=== PATIENT | male | born 1950 | race Caucasian/White ===

== ENCOUNTER 2017-01-05 06:13 | Inpatient (IN) | payer OTHER, MEDICARE ==
[2017-01-05] VITALS (9 sets, daily range): BP systolic 83–169; BP diastolic 55–81; PULSE 73–90; RESP 16–20; TEMP 97.8–99; O2SAT 96–98
[~2017-01-05] VITALS: Ht 180.3 cm; Wt 80.7 kg
[~2017-01-05 06:13] MED LIST: IBUP400T20 PO; LISI-515 PO; NORC5TAB PO
[2017-01-05] MEDS ORDERED: ALEV220T14 PO (06:28)
--- NOTE | 2017-01-05 06:47 | PD ---
HPI Chief Complaint: Musculoskeletal Complaint Time Seen by Provider: 06:37 Travel History International Travel<30 days: No Contact w/Intl Traveler<30days: No Traveled to known affect area: No History of Present Illness HPI 66-year-old male presents to the emergency department by private transportation for evaluation of right knee pain. 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 Patient has history of osteoarthritis of the right knee with chronic knee swelling and pain. Patient states that he has been taking over-the -counter Aleve and putting ice on his knee but over the past 2 days he has not felt well the knee pain has increased and he said episodes of nausea. No fever no chills no chest pain no shortness of breath no sweats no abdominal pain no flank pain dysuria frequency urgency no diarrhea or constipation. Patient's had no new joint pain or swelling. Patient reports however that the swelling and pain of the right knee has increased. Patient has not noticed any redness or increased warmth to the knee. Patient states that pain is 9/10 in intensity. Patient reports he has been seen here before for his chronic knee pain but has not followed up with an orthopedist. Patient denies any fall. Patient states however he has been doing repetitive climbing and kneeling and pushing a lawnmower which is part of his [employer] business. Patient has history of hypertension. Patient has had previous acute renal failure secondary to dehydration. Patient has history of hypertension for which she is prescribed Lisinopril. PFSH Past Medical History Narrative Medical Right knee arthritis hypertension appendectomy left orchiectomy; no tobacco use no alcohol use; nursing notes reviewed Arthritis: Yes (RT KNEE) Cancer: No Cardiovascular Problems: Yes (htn on meds) Diminished Hearing: No Endocrine: No Gastrointestinal Disorders: No Genitourinary: No Hypertension: Yes Implanted Vascular Access Dvce: No Musculoskeletal: Yes ("right knee problems,knee pops out,can't afford to f/u with ortho") Neurologic: No Psychiatric: No Reproductive: No Respiratory: No Immunizations Current: No Sleep Apnea: No PNEUMOCCOCAL Vaccine (Year): 2 ?: Not Past Surgical History Appendectomy: Yes Ear Surgery: No Genitourinary Surgery: Yes (LEFT TESTICLE REMOVED 20 YEARS AGO) Neurologic Surgery: No Oral Surgery: Yes ("bilateral nasal surgery for polyps") Other Surgery: Yes ("left testicle removed") Social History Alcohol Use: No (DENIES) Tobacco Use: No Substance Use: Yes Allergies-Medications (Allergen,Severity, Reaction): Coded Allergies: Codeine (Verified Adverse Reaction, Severe, "itch", 07/05/16) Ultram (Verified Adverse Reaction, Severe, Nausea/Vomiting, 07/05/16) Reported Meds & Prescriptions Reported Meds & Active Scripts Active Reported Aleve Arthritis (Naproxen Sodium) 220 Mg Tab 220 Mg PO BID Lisinopril 20 Mg Tab 20 Mg PO DAILY Review of Systems Except as stated in HPI: all other systems reviewed are Neg Physical Exam Narrative GENERAL: Well-developed well-nourished male in obvious discomfort no respiratory distress SKIN: Warm and dry. HEAD: Normocephalic. EYES: No scleral icterus. No injection or drainage. NECK: Supple, trachea midline. No JVD or lymphadenopathy. CARDIOVASCULAR: Regular rate and rhythm without murmurs, gallops, or rubs. RESPIRATORY: Breath sounds equal bilaterally. No accessory muscle use. GASTROINTESTINAL: Abdomen soft, non-tender, nondistended. MUSCULOSKELETAL: No cyanosis, or edema. Attention right knee positive soft tissue swelling positive chronic change bony deformity positive small ballotable effusion no increased redness no increased warmth; decreased range of motion secondary to pain at the inferior medial aspect of the knee and at the superior lateral aspect of the right knee. Distally extremity is neurovascular tendon intact. BACK: Nontender without obvious deformity. No CVA tenderness. Data Data Last Documented VS Vital Signs Date Time Temp Pulse Resp B/P Pulse Ox O2 Delivery O2 Flow Rate FiO2 01/05/17 06:29 81 16 95/55 98 01/05/17 06:18 97.8 Orders Complete Blood Count With Diff (01/05/17 06:37) Basic Metabolic Panel (Bmp) (01/05/17 06:37) Uric Acid (01/05/17 06:37) Westergren Sedimentation Rate (01/05/17 06:37) Knee, Complete (4vws) (01/05/17 ) Act Partial Throm Time (Ptt) (01/05/17 06:37) Prothrombin Time / Inr (Pt) (01/05/17 06:37) C-Reactive Protein (Crp) (01/05/17 06:37) Sodium Chlor 0.9% 1000 Ml Inj (Ns 1000 M (01/05/17 07:00) Acetamin-Hydrocod 325-5 Mg ([place] 5-325 (01/05/17 07:15) Labs Laboratory Tests Test 01/05/17 06:50 White Blood Count 12.0 TH/MM3 Red Blood Count 4.08 MIL/MM3 Hemoglobin 12.8 GM/DL Hematocrit 37.5 % Mean Corpuscular Volume 91.9 FL Mean Corpuscular Hemoglobin 31.5 PG Mean Corpuscular Hemoglobin 34.3 % Concent Red Cell Distribution Width 12.2 % Platelet Count 308 TH/MM3 Mean Platelet Volume 7.8 FL Neutrophils (%) (Auto) 79.3 % Lymphocytes (%) (Auto) 10.4 % Monocytes (%) (Auto) 6.4 % Eosinophils (%) (Auto) 3.3 % Basophils (%) (Auto) 0.6 % Neutrophils # (Auto) 9.4 TH/MM3 Lymphocytes # (Auto) 1.3 TH/MM3 Monocytes # (Auto) 0.8 TH/MM3 Eosinophils # (Auto) 0.4 TH/MM3 Basophils # (Auto) 0.1 TH/MM3 CBC Comment DIFF FINAL Differential Comment MDM Medical Decision Making Medical Screen Exam Complete: Yes Emergency Medical Condition: Yes Medical Record Reviewed: Yes Differential Diagnosis Osteoarthritis gouty arthritis pseudogout degenerative joint disease septic arthritis recurrent renal failure/insufficiency, dehydration Narrative Course IV access obtained and specimens collected; patient administered one time dose of Lortab 5/325; imaging study ordered; also administer bolus of normal saline. Petra Saucedo MD January 05, 2017 06:47
[2017-01-05 07:00] LABS: AUTOMATED NEUTROPHIL # 9.4 TH/MM3 (1.8-7.7); BASOPHIL # 0.1 TH/MM3 (0-0.2); BASOPHIL % 0.6 % (0.0-2.0); EOSINOPHIL # 0.4 TH/MM3 (0-0.4); EOSINOPHIL % 3.3 % (0.0-4.0); HEMATOCRIT 37.5 % (39.0-51.0); LYMPH % 10.4 % (9.0-44.0); LYMPHOCYTE # 1.3 TH/MM3 (1.0-4.8); MEAN CELL VOLUME 91.9 FL (80.0-100.0); MEAN CORPUSCULAR HEMOGLOBIN 31.5 PG (27.0-34.0); MEAN CORPUSCULAR HGB CONC 34.3 % (32.0-36.0); MONO % 6.4 % (0.0-8.0); NEUT % 79.3 % (16.0-70.0); PLATELET COUNT 308 TH/MM3 (150-450); RED BLOOD COUNT 4.08 MIL/MM3 (4.50-5.90); RED CELL DISTRIBUTION WIDTH 12.2 % (11.6-17.2)
[2017-01-05] MEDS ORDERED: SODIUM CHLOR 0.9% 1000 ML INJ 1,000 ML IV ONE ×2 (07:00→07:45)
[2017-01-05 07:02] LABS: HEMO FLAGS DIFF FINAL
[2017-01-05] MEDS ORDERED: ACETAMINOPHEN/HYDROcodone 325 MG/5 MG TAB PO ONE (07:15)
[2017-01-05 07:25] LABS: APTT (PATIENT) 29.5 SEC (24.3-30.1); PROTHROMBIN TIME - PATIENT 10.6 SEC (9.8-11.6)
--- NOTE | 2017-01-05 08:29 | RADHPO ---
EXAM DATE/TIME: 01/05/2017 06:48 [facility] COMPARISON: KNEE RIGHT COMPLETE (4VWS), October 12, 2015, 10:12. INDICATIONS : Right knee pain, no known injury. MEDICAL HISTORY : Arthritis. chronic right knee pain SURGICAL HISTORY : None. ENCOUNTER: Initial ACUITY: 4 - 6 days PAIN SCORE: 9/10 LOCATION: Right knee FINDINGS: There is severe osteoarthritis of the knee at the lateral tibiofemoral compartment with joint space n arrowing, sclerosis and osteophytosis. No fracture or dislocation. Patellar osteophyte formation and patellofemoral narrowing is also seen. CONCLUSION: Severe osteoarthritis. Nolan Puga MD on January 05, 2017 at 7:29 Board Certified Radiologist. This report was verified electronically.
--- NOTE | 2017-01-05 08:35 | PD ---
Data Data Last Documented VS Vital Signs Date Time Temp Pulse Resp B/P Pulse Ox O2 Delivery O2 Flow Rate FiO2 01/05/17 12:15 16 01/05/17 10:00 84 120/81 01/05/17 09:00 98 Room Air 01/05/17 06:18 97.8 Orders Complete Blood Count With Diff (01/05/17 06:37) Basic Metabolic Panel (Bmp) (01/05/17 06:37) Uric Acid (01/05/17 06:37) Westergren Sedimentation Rate (01/05/17 06:37) Knee, Complete (4vws) (01/05/17 ) Act Partial Throm Time (Ptt) (01/05/17 06:37) Prothrombin Time / Inr (Pt) (01/05/17 06:37) C-Reactive Protein (Crp) (01/05/17 06:37) Sodium Chlor 0.9% 1000 Ml Inj (Ns 1000 M (01/05/17 07:00) Acetamin-Hydrocod 325-5 Mg (Hanna 5-325 (01/05/17 07:15) Sodium Chlor 0.9% 1000 Ml Inj (Ns 1000 M (01/05/17 07:45) Lidocai-Epi 2%-1:100,000 Inj (Xylocaine- (01/05/17 09:45) Synovial Fl Cell Count + Diff (01/05/17 10:03) Synovial Fluid Crystals (01/05/17 10:03) Fluid Culture And Gram Stain (01/05/17 10:03) Vancomycin Inj (Vancomycin Inj) (01/05/17 11:30) Ceftriaxone Inj (Rocephin Inj) (01/05/17 11:30) Hydromorphone Pf Inj (Dilaudid Pf Inj) (01/05/17 11:30) Ondansetron Inj (Zofran Inj) (01/05/17 11:30) Sodium Chlor 0.9% 1000 Ml Inj (Ns 1000 M (01/05/17 11:30) Diet Npo Except Meds (01/05/17 Lunch) Admit Order (Ed Use Only) (01/05/17 12:20) Consult Orthopedic (01/05/17 ) Vital Signs (Adult) DAREN.Q4H (01/05/17 12:17) Acetaminophen (Tylenol) (01/05/17 12:30) Ondansetron Inj (Zofran Inj) (01/05/17 12:30) Labs Laboratory Tests Test 01/05/17 01/05/17 06:50 10:15 White Blood Count 12.0 TH/MM3 Red Blood Count 4.08 MIL/MM3 Hemoglobin 12.8 GM/DL Hematocrit 37.5 % Mean Corpuscular Volume 91.9 FL Mean Corpuscular Hemoglobin 31.5 PG Mean Corpuscular Hemoglobin 34.3 % Concent Red Cell Distribution Width 12.2 % Platelet Count 308 TH/MM3 Mean Platelet Volume 7.8 FL Neutrophils (%) (Auto) 79.3 % Lymphocytes (%) (Auto) 10.4 % Monocytes (%) (Auto) 6.4 % Eosinophils (%) (Auto) 3.3 % Basophils (%) (Auto) 0.6 % Neutrophils # (Auto) 9.4 TH/MM3 Lymphocytes # (Auto) 1.3 TH/MM3 Monocytes # (Auto) 0.8 TH/MM3 Eosinophils # (Auto) 0.4 TH/MM3 Basophils # (Auto) 0.1 TH/MM3 CBC Comment DIFF FINAL Differential Comment Erythrocyte Sedimentation Rate 21 mm/hr Prothrombin Time 10.6 SEC Prothromb Time International 1.0 RATIO Ratio Activated Partial 29.5 SEC Thromboplast Time Sodium Level 135 MEQ/L Potassium Level 4.0 MEQ/L Chloride Level 103 MEQ/L Carbon Dioxide Level 26.0 MEQ/L Anion Gap 6 MEQ/L Blood Urea Nitrogen 25 MG/DL Creatinine 0.73 MG/DL Estimat Glomerular Filtration 107 ML/MIN Rate Random Glucose 111 MG/DL Uric Acid 6.0 MG/DL Calcium Level 8.5 MG/DL C-Reactive Protein 1.60 MG/DL Synovial Fluid Color STRAW Synovial Fluid Appearance MODERATE Synovial Fluid WBC 51278 /MM3 Synovial Fluid RBC 80 /MM3 Synovial Fluid Neutrophils 93 % Synovial Fluid Lymphocytes 6 % Synovial Fluid Monocytes 1 % Synovial Fluid Crystals NONE MDM Medical Record Reviewed: Yes Supervised Visit with ELIZABETH: No Narrative Course CBC & BMP Diagram 01/05/17 06:50 INR 1.0 Knee Xray: no fracture, suprapetaller effusion present Mild dehydration noted. 2L NS administered. Please refer to Dr Saucedo's note. The history exam and workup here is not consistent with septic arthritis. Swelling in the left knee is noted without marked erythema or warmth. Arthrocentesis performed. Synovial fluid from knee 31,000 WBCs Neutrophils percentage 91% Case d/w Dr Bhardwaj for ortho. Case d/w Dr Alvarez for [facility]. Vanco/Rocephin started. Pt will be sent to the main to be seen by ortho. Diagnosis Primary Impression: Chronic pain of right knee Additional Impressions: Dehydration Septic arthritis Qualified Code: M00.9 - Pyogenic arthritis of right knee joint, due to unspecified organism Admitting Information Admitting Physician Requests: Admit Jovanni Phan MD January 05, 2017 08:35
[2017-01-05] MEDS ORDERED: LIDOCAINE 2%/EPINEPHrine 1:100,000 30ML MDV INFIL ONE (09:45)
[2017-01-05 10:54] LABS: WBC, SYNOVIAL FLUID 31150 /MM3 (0-200)
[2017-01-05] MEDS ORDERED: HYDROmorphone HCL PF 1 MG/ML VIAL IV PUSH ONE (11:30)
[2017-01-05] MEDS ORDERED: VANCOMYCIN INJ 1,750 MG in SODIUM CHLORID 0.9% 500 ML INJ 500 ML IV ONE (11:30)
[2017-01-05] MEDS ORDERED: ONDANSETRON HCL 4 MG/2 ML VIAL IV PUSH ONE (11:30)
[2017-01-05] MEDS ORDERED: cefTRIAXone INJ 2,000 MG in SODIUM CHLORIDE 0.9% INJ 100 ML IV ONE (11:30)
[2017-01-05] MEDS: SODIUM CHLOR 0.9% 1000 ML INJ 1,000 ML IV SCH ×3 (11:44→22:45)
[2017-01-05] MEDS ORDERED: ONDANSETRON HCL 4 MG/2 ML VIAL IV PUSH PRN (12:30)
[2017-01-05] MEDS ORDERED: ACETAMINOPHEN 325 MG TAB PO PRN (12:30)
--- NOTE | 2017-01-05 12:43 | HHI.HP ---
[facility] No Primary Care Physician Admission Diagnosis R Knee Pain, Poss Septic Arthritis Diagnoses: (1) Inflammatory arthritis Diagnosis: Principal Chief Complaint: right knee pain Travel History International Travel<30 Days: No Contact w/Intl Traveler <30 Da: No Traveled to Known Affected Are: No History of Present Illness patient is a 66 y/o male with history of hypertension who presented to ER with pain to the right knee. 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 but it started to get worse few days ago.pain is moderate to severe in intensity, worse with any movement of the right leg and localized to the right knee. he says that the pain got worse to the extent that he couldn't sleep last night. he says that his knee ' feels warm'.he denies any fever or chills.there's no history of recent trauma. Review of Systems Constitutional: DENIES: Fever, Weight loss, Chills, Night Sweats Eyes: DENIES: Blurred vision, Diplopia, Vision loss, Double Vision Ears, nose, mouth, throat: DENIES: Tinnitus, Vertigo, Throat pain, Epistaxis Respiratory: DENIES: Apneas, Cough, Snoring, Wheezing, Hemoptysis, Sputum production, Shortness of breath Cardiovascular: DENIES: Chest pain, Palpitations, Syncope, Dyspnea on Exertion , PND, Lower Extremity Edema, Orthopnea, Claudication Gastrointestinal: DENIES: Abdominal pain, Black stools, Bloody stools, Constipation, Diarrhea, Nausea, Vomiting, Difficulty Swallowing, Anorexia Genitourinary: DENIES: Urinary frequency, Urgency, Hematuria, Dysuria Musculoskeletal: COMPLAINS OF: Joint pain (right knee.), DENIES: Muscle aches , Stiffness, Joint Swelling Integumentary: DENIES: Rash Neurologic: DENIES: Abnormal gait, Headache, Localized weakness, Paresthesias, Seizures, Speech Problems, Tremor, Poor Balance Psychiatric: DENIES: Anxiety, Confusion, Mood changes, Depression, Hallucinations, Agitation, Suicidal Ideation, Homicidal Ideation, Delusions Past Family Social History Past Medical History hypertension Past Surgical History appendectomy Reported Medications lisinopril Allergies: Coded Allergies: Codeine (Verified Adverse Reaction, Severe, "itch", 07/05/16) Ultram (Verified Adverse Reaction, Severe, Nausea/Vomiting, 07/05/16) Active Ordered Medications Current Medications Sodium Chloride (NS 1000 ml Inj) 1,000 ml @ 999 mls/hr BOLUS ONCE IV Last administered on 01/05/17 07:08; Start 01/05/17 at 07:00; Stop 01/05/17 at 08:00 ; Status DC Acetaminophen/ Hydrocodone Bitart 1 tab 1 tab ONCE ONCE PO Last administered on 01/05/17 07:24; Start 01/05/17 at 07:15; Stop 01/05/17 at 07:16; Status DC Sodium Chloride (NS 1000 ml Inj) 1,000 ml @ 999 mls/hr BOLUS ONCE IV Last administered on 01/05/17 08:56; Start 01/05/17 at 07:45; Stop 01/05/17 at 08:45 ; Status DC Lidocaine/ Epinephrine 30 ml 30 ml ONCE ONCE INFIL Last administered on 09:51; Start 01/05/17 at 09:45; Stop 01/05/17 at 09:48; Status DC Vancomycin HCl 1750 mg/Sodium Chloride 517.5 ml @ 258.75 mls/ hr ONCE ONCE IV ; Start 01/05/17 at 11:30; Stop 01/05/17 at 13:29 Ceftriaxone Sodium/Sodium Chloride (Rocephin Inj/NS Inj) 100 ml @ 200 mls/hr ONCE ONCE IV Last administered on 01/05/17 11:44; Start 01/05/17 at 11:30; Stop 01/05/17 at 11:59; Status DC Hydromorphone HCl (Dilaudid Pf Inj) 1 mg ONCE ONCE IV PUSH Last administered on 01/05/17 11:44; Start 01/05/17 at 11:30; Stop 01/05/17 at 11:31; Status DC Ondansetron HCl 4 mg 4 mg ONCE ONCE IV PUSH Last administered on 01/05/17 11: 44; Start 01/05/17 at 11:30; Stop 01/05/17 at 11:31; Status DC Sodium Chloride (NS 1000 ml Inj) 1,000 ml @ 125 mls/hr Q8H IV Last administered on 01/05/17t 11:44; Start 01/05/17 at 11:30 Acetaminophen (Tylenol) 650 mg Q4H PRN PO FEVER; Start 01/05/17 at 12:30 Ondansetron HCl (Zofran Inj) 4 mg Q8HR PRN IV PUSH NAUSEA; Start 01/05/17 at 12 :30 Family History not relevant to this presentation. Social History quit smoking. doesn't drink. Physical Exam Vital Signs Vital Signs Date Time Temp Pulse Resp B/P Pulse Ox O2 Delivery O2 Flow Rate FiO2 01/05/17 10:00 84 16 120/81 01/05/17 09:58 16 01/05/17 09:00 75 16 117/69 98 Room Air 01/05/17 08:28 16 01/05/17 08:10 78 16 133/71 98 Room Air 01/05/17 07:00 73 16 01/05/17 07:00 73 16 111/66 98 Room Air 01/05/17 06:29 81 16 95/55 98 01/05/17 06:18 97.8 73 18 83/59 97 Physical Exam GENERAL: This is a well-nourished, well-developed patient, in no apparent distress. SKIN: No rashes, ecchymoses or lesions. Cool and dry. HEAD: Atraumatic. Normocephalic. No temporal or scalp tenderness. EYES: Pupils equal round and reactive. Extraocular motions intact. No scleral icterus. No injection or drainage. ENT: Nose without bleeding, purulent drainage or septal hematoma. Throat without erythema, tonsillar hypertrophy or exudate. Uvula midline. Airway patent. NECK: Trachea midline. No JVD or lymphadenopathy. Supple, nontender, no meningeal signs. CARDIOVASCULAR: Regular rate and rhythm without murmurs, gallops, or rubs. RESPIRATORY: Clear to auscultation. Breath sounds equal bilaterally. No wheezes , rales, or rhonchi. GASTROINTESTINAL: Abdomen soft, non-tender, nondistended. No hepato-splenomegaly , or palpable masses. No guarding. MUSCULOSKELETAL: right knee is swollen, warm and tender with decrease in ROM. NEUROLOGICAL: Awake and alert. Cranial nerves II through XII intact. Motor and sensory grossly within normal limits. Five out of 5 muscle strength in all muscle groups. Normal speech. Laboratory Laboratory Tests Test 01/05/17 01/05/17 06:50 10:15 White Blood Count 12.0 Red Blood Count 4.08 Hemoglobin 12.8 Hematocrit 37.5 Mean Corpuscular Volume 91.9 Mean Corpuscular Hemoglobin 31.5 Mean Corpuscular Hemoglobin 34.3 Concent Red Cell Distribution Width 12.2 Platelet Count 308 Mean Platelet Volume 7.8 Neutrophils (%) (Auto) 79.3 Lymphocytes (%) (Auto) 10.4 Monocytes (%) (Auto) 6.4 Eosinophils (%) (Auto) 3.3 Basophils (%) (Auto) 0.6 Neutrophils # (Auto) 9.4 Lymphocytes # (Auto) 1.3 Monocytes # (Auto) 0.8 Eosinophils # (Auto) 0.4 Basophils # (Auto) 0.1 CBC Comment DIFF FINAL Differential Comment Erythrocyte Sedimentation Rate 21 Prothrombin Time 10.6 Prothromb Time International 1.0 Ratio Activated Partial 29.5 Thromboplast Time Sodium Level 135 Potassium Level 4.0 Chloride Level 103 Carbon Dioxide Level 26.0 Anion Gap 6 Blood Urea Nitrogen 25 Creatinine 0.73 Estimat Glomerular Filtration 107 Rate Random Glucose 111 Uric Acid 6.0 Calcium Level 8.5 C-Reactive Protein 1.60 Synovial Fluid Color STRAW Synovial Fluid Appearance MODERATE Synovial Fluid WBC 57916 Synovial Fluid RBC 80 Synovial Fluid Neutrophils 93 Synovial Fluid Lymphocytes 6 Synovial Fluid Monocytes 1 Synovial Fluid Crystals NONE Date/Time Procedure Status Source Growth 01/05/17 10:15 Gram Stain Received Fluid Synovial Fluid Pending 01/05/17 10:15 Body Fluid Culture Received Fluid Synovial Fluid Pending Result Diagram: 01/05/17 0650 01/05/17 0650 Imaging Last Impressions Knee X-Ray 01/05/17 0000 Signed Impressions: Service Date/Time: Thursday, January 05, 2017 06:48 - CONCLUSION: Severe osteoarthritis. Nolan Puga MD Assessment and Plan Assessment and Plan A/P - right knee inflammatory arthritis- r/o septic arthritis s/p arthrocentesis in ER continue with empiric IV antibiotics- follow the fluid culture and crystals- obtain blood cultures- consult ortho will consider ID consult pending the clinical course and cultures. continue with pain control. -hypertension; resume lisinopril -DVT prophylaxis- pending ortho evaluation Discussed Condition With ER physician and the patient. Physician Certification 2 Midnight Certification Type: Admission for Inpatient Services Order for Inpatient Services The services are ordered in accordance with Medicare regulations or non- Medicare payer requirements, as applicable. In the case of services not specified as inpatient-only, they are appropriately provided as inpatient services in accordance with the 2-midnight benchmark. Estimated LOS (days): 2 days is the estimated time the patient will need to remain in the hospital, assuming treatment plan goals are met and no additional complications. Post-Hospital Plan: Home Davey Alvarez MD January 05, 2017 12:43
[2017-01-05] MEDS ORDERED: Vancomycin Consult Pharmacy 1 EA OTHER SCH (12:45)
[2017-01-05] MEDS: HYDROmorphone HCL PF 1 MG/ML VIAL IV PUSH PRN ×2 (16:14→21:58)
[2017-01-06] VITALS: BP 134/68; PULSE 81; RESP 20; TEMP 98.2; O2SAT 96
[2017-01-06] MEDS: HYDROmorphone HCL PF 1 MG/ML VIAL IV PUSH PRN ×5 (02:26→22:28)
[2017-01-06] MEDS: SODIUM CHLOR 0.9% 1000 ML INJ 1,000 ML IV SCH ×6 (03:30→19:30)
[2017-01-06] MEDS: VANCOMYCIN 1,500 MG/NS 500 ML IV SCH ×4 (03:44→13:54)
[2017-01-06 04:00] VITALS: BP 132/68; PULSE 66; RESP 20; TEMP 97.1; O2SAT 97
[2017-01-06] MEDS: LISINOPRIL 20 MG TAB PO SCH (08:12)
[2017-01-06 08:43] VITALS: BP 138/66; PULSE 80; RESP 18; TEMP 98.2; O2SAT 100
[2017-01-06 10:30] VITALS: BP 137/74; PULSE 74; RESP 19; TEMP 97.4; O2SAT 98
[2017-01-06] MEDS ORDERED: cefTRIAXone INJ 1,000 MG in SODIUM CHLORIDE 0.9% INJ 100 ML IV SCH (12:00)
--- NOTE | 2017-01-06 12:02 | HHI.PR ---
Subjective Remarks complains of right knee pain specially with movement by history - increasing difficulty ambulation for the past few months- has been wearing knee brace on and off with no improvement, denies any trauma then this past 3 days rapid increase in swelling and pain denies any fever or chills Objective Vitals Vital Signs Date Time Temp Pulse Resp B/P Pulse Ox O2 Delivery O2 Flow Rate FiO2 01/06/17 08:43 98.2 80 18 138/66 100 01/06/17 04:00 97.1 66 20 132/68 97 01/06/17 03:47 18 01/06/17 00:00 98.2 81 20 134/68 96 01/05/17 20:00 99.0 87 20 128/75 98 01/05/17 16:00 98.3 90 19 169/78 96 01/05/17 12:35 84 16 133/73 97 Room Air 01/05/17 12:15 16 I/O 01/05/17 01/05/17 01/05/17 01/06/17 01/06/17 01/06/17 07:00 15:00 23:00 07:00 15:00 23:00 Intake Total 2100 ml 200 ml Output Total 400 ml 800 ml 375 ml Balance 1700 ml -800 ml -175 ml Intake Oral 200 ml IV Total 2100 ml Output Urine Total 400 ml 800 ml 375 ml # Bowel Movements 0 Result Diagram: 01/05/17 0650 01/06/17 0728 Imaging Last Impressions Knee X-Ray 01/05/17 0000 Signed Impressions: Service Date/Time: Thursday, January 05, 2017 06:48 - CONCLUSION: Severe osteoarthritis. Nolan Puga MD Objective Remarks awake and alert anicteric lungs clear regular rhythm abdomen soft, nontender right knee- + swelling, with marked decrease in flexionand extension, pain with touch and movement, no calf swelling, good epripheral pulses Procedures 01/05- right knee arthrocentesis A/P Problem List: (1) Inflammatory arthritis ICD Code: M19.90 Status: Acute Assessment and Plan 66 years old male- does a lot of yard work - increasing difficulty ambulation for the past few months- has been wearing knee brace on and off with no help then this past 3 days rapid increase in swelling and pain. denies any fever or chills Right knee effusion S/P arthrocentesis - per report gross purulence on tap, studies with leukocytosis on synovial fluid studies , negative for crystals - r/o underlying any anatomical/ligament/meniscal tear with -get CT of the right knee - ESR, CRP elevated but not impressive - Orthopedics surgery consulted. continue on IV antibiotics for now- Vanco/ Rocephin- ff cultures - prn pain meds History of hypertension -continue meds Carlos Brooks MD Jan 06, 2017 12:02 Carlos Brooks MD Jan 06, 2017 12:02
--- NOTE | 2017-01-06 13:28 | PD.CONS ---
cc: Amaury Washington Jr., MD HPI Service Orthopedic Surgeons Consult Requested By Primary Care Physician No Primary Care Physician Admission Diagnosis R Knee Pain, Poss Septic Arthritis Diagnoses: (1) Inflammatory arthritis Diagnosis: Principal Chief Complaint: Right knee pain History of Present Illness 66 y/o male with history of hypertension who presented to ER with pain to the right knee. 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 however after working 3 days ago the right knee pain was exacerbated worsened and became associated with swelling and difficulty to bear weight. pain is moderate to severe in intensity, worse with any movement of the right leg and localized to the right knee. he says that the pain got worse to the extent that he couldn't sleep last night. he says that his knee ' feels warm' .he denies any fever or chills.there's no history of recent trauma. no pain at rest. Not associated with any paresthesia or numbness to the right lower extremity. His pain is mildly improved since admission yesterday. He had a knee arthrocentesis in the emergency department yesterday and cultures were sent to laboratory. ROS - General Review of Systems Constitutional: DENIES: Fever, Weight loss, Chills, Night Sweats Eyes: DENIES: Blurred vision, Diplopia, Vision loss, Double Vision Ears, nose, mouth, throat: DENIES: Tinnitus, Vertigo, Throat pain, Epistaxis Respiratory: DENIES: Apneas, Cough, Snoring, Wheezing, Hemoptysis, Sputum production, Shortness of breath Cardiovascular: DENIES: Chest pain, Palpitations, Syncope, Dyspnea on Exertion , PND, Lower Extremity Edema, Orthopnea, Claudication Gastrointestinal: DENIES: Abdominal pain, Black stools, Bloody stools, Constipation, Diarrhea, Nausea, Vomiting, Difficulty Swallowing, Anorexia Genitourinary: DENIES: Urinary frequency, Urgency, Hematuria, Dysuria Musculoskeletal: COMPLAINS OF: Joint pain (right knee.), DENIES: Muscle aches , Stiffness, Joint Swelling Integumentary: DENIES: Rash Neurologic: DENIES: Abnormal gait, Headache, Localized weakness, Paresthesias, Seizures, Speech Problems, Tremor, Poor Balance Psychiatric: DENIES: Anxiety, Confusion, Mood changes, Depression, Hallucinations, Agitation, Suicidal Ideation, Homicidal Ideation, Delusions PFSH Past Family Social History Past Medical History hypertension Past Surgical History appendectomy Reported Medications lisinopril Allergies: Coded Allergies: Codeine (Verified Adverse Reaction, Severe, "itch", 07/05/16) Ultram (Verified Adverse Reaction, Severe, Nausea/Vomiting, 07/05/16) Active Ordered Medications Current Medications Sodium Chloride (NS 1000 ml Inj) 1,000 ml @ 999 mls/hr BOLUS ONCE IV Last administered on 01/05/17 07:08; Start 01/05/17 at 07:00; Stop 01/05/17 at 08:00 ; Status DC Acetaminophen/ Hydrocodone Bitart 1 tab 1 tab ONCE ONCE PO Last administered on 01/05/17 07:24; Start 01/05/17 at 07:15; Stop 01/05/17 at 07:16; Status DC Sodium Chloride (NS 1000 ml Inj) 1,000 ml @ 999 mls/hr BOLUS ONCE IV Last administered on 01/05/17 08:56; Start 01/05/17 at 07:45; Stop 01/05/17 at 08:45 ; Status DC Lidocaine/ Epinephrine 30 ml 30 ml ONCE ONCE INFIL Last administered on 09:51; Start 01/05/17 at 09:45; Stop 01/05/17 at 09:48; Status DC Vancomycin HCl 1750 mg/Sodium Chloride 517.5 ml @ 258.75 mls/ hr ONCE ONCE IV ; Start 01/05/17 at 11:30; Stop 01/05/17 at 13:29 Ceftriaxone Sodium/Sodium Chloride (Rocephin Inj/NS Inj) 100 ml @ 200 mls/hr ONCE ONCE IV Last administered on 01/05/17 11:44; Start 01/05/17 at 11:30; Stop 01/05/17 at 11:59; Status DC Hydromorphone HCl (Dilaudid Pf Inj) 1 mg ONCE ONCE IV PUSH Last administered on 01/05/17 11:44; Start 01/05/17 at 11:30; Stop 01/05/17 at 11:31; Status DC Ondansetron HCl 4 mg 4 mg ONCE ONCE IV PUSH Last administered on 01/05/17 11: 44; Start 01/05/17 at 11:30; Stop 01/05/17 at 11:31; Status DC Sodium Chloride (NS 1000 ml Inj) 1,000 ml @ 125 mls/hr Q8H IV Last administered on 01/05/17 11:44; Start 01/05/17 at 11:30 Acetaminophen (Tylenol) 650 mg Q4H PRN PO FEVER; Start 01/05/17 at 12:30 Ondansetron HCl (Zofran Inj) 4 mg Q8HR PRN IV PUSH NAUSEA; Start 01/05/17 at 12 :30 Family History not relevant to this presentation. Social History quit smoking. doesn't drink Past Family Social History Past Medical History hypertension Past Surgical History appendectomy Allergies: Coded Allergies: Codeine (Verified Adverse Reaction, Severe, "itch", 07/05/16) Ultram (Verified Adverse Reaction, Severe, Nausea/Vomiting, 07/05/16) Active Ordered Medications Current Medications Medications (Trade) Dose Ordered Sig/Benny Route Start Time Stop Time Status Last Admin (NS 1000 ml Inj) 1,000 ml @ 125 mls/hr Q8H IV 01/05/17 11:30 01/06/17 12:30 (Tylenol) 650 mg Q4H PRN PO 01/05/17 12:30 Ondansetron HCl 4 mg 4 mg Q8HR PRN IV PUSH 01/05/17 12:30 (NS 1000 ml Inj) 1,000 ml @ 100 mls/hr Q10H IV 01/05/17 12:45 01/05/17 22:45 Hydromorphone HCl 0.5 mg 0.5 mg Q4H PRN IV PUSH 01/05/17 12:45 01/06/17 12:31 Pharmacy Profile Note 0 ml @ 0 mls/hr UNSCH OTHER 01/05/17 12:45 (Rocephin Inj/NS Inj) 100 ml @ 200 mls/hr Q24H IV 01/06/17 12:00 01/06/17 12:32 Lisinopril 20 mg 20 mg DAILY PO 01/06/17 09:00 01/06/17 08:12 (Vancomycin Inj/ NS 500 ml Inj) 515 ml @ 257.5 mls/ hr Q12H IV 01/06/17 01:00 01/06/17 03:44 Miscellaneous Information SPECIFIC LAB TO BE YOUSIF... ONCE ONCE .XX 01/07/17 00:45 01/07/17 00:46 (Pneumovax-23 Inj) 25 mcg ONCE ONCE IM 01/07/17 10:00 01/07/17 10:01 (Flu (Quadrivalent) Vaccine Inj) 0.5 ml ONCE ONCE IM 01/07/17 10:00 01/07/17 10:01 Reported Meds & Active Scripts Active Reported Aleve Arthritis (Naproxen Sodium) 220 Mg Tab 220 Mg PO BID Lisinopril 20 Mg Tab 20 Mg PO DAILY Family History not relevant to this presentation. Social History quit smoking. doesn't drink. Physical Exam Vital Signs Vital Signs Date Time Temp Pulse Resp B/P Pulse Ox O2 Delivery O2 Flow Rate FiO2 01/06/17 10:30 97.4 74 19 137/74 98 01/06/17 08:43 98.2 80 18 138/66 100 01/06/17 04:00 97.1 66 20 132/68 97 01/06/17 03:47 18 01/06/17 00:00 98.2 81 20 134/68 96 01/05/17 20:00 99.0 87 20 128/75 98 01/05/17 16:00 98.3 90 19 169/78 96 Physical Exam Alert awake and oriented x 3. No acute distress. Head: NC/AT Neck: No pain with any range of motion and neck. No tenderness to palpation along posterior cervical elements. Negative Spurling. Pulmonary: Normal respiratory effort. Bilateral upper extremity: Grossly neurovascularly intact. 2+ radial artery pulses. Good cap refill. RIGHT lower extremity: Right knee flexed about 30. Moderate effusion with mild royer-edema. Tender to palpation along lateral femoral condyle and lateral joint line. Negative Yaron's. Range of motion 20-45. Range of motion painful secondary to swelling. No erythema, no induration and no skin changes. Otherwise grossly Neurovascularly intact, +EHL/FHL, + PT/DP pulses. Supple compartments. Negative Homans sign. LEFT lower extremity: Grossly Neurovascularly intact, +EHL/FHL, + PT/DP pulses. Supple compartments. Negative Homans sign. Laboratory Laboratory Tests Test 01/06/17 07:28 Creatinine 0.59 Estimat Glomerular Filtration 137 Rate Date/Time Procedure Status Source Growth 01/06/17 07:28 Aerobic Blood Culture Received Blood Peripheral Pending 01/06/17 07:28 Anaerobic Blood Culture Received Blood Peripheral Pending 01/05/17 10:15 Gram Stain - Final Resulted Fluid Synovial Fluid 01/05/17 10:15 Body Fluid Culture - Preliminary Resulted Fluid Synovial Fluid NO GROWTH IN 24 HOURS. Result Diagram: 01/05/17 0650 01/06/17 0728 Imaging Last 72 hours Impressions Knee X-Ray 01/05/17 0000 Signed Impressions: Service Date/Time: Thursday, January 05, 2017 06:48 - CONCLUSION: Severe osteoarthritis. Nolan Puga MD Assessment & Plan Assessment and Plan 66yo male with a 2+ year history of right knee pain and discomfort. He presented with acute onset pain and right knee assisted with swelling and effusion for the past 3 days. He denies any fever or chills. He denies any trauma. On exam, he has moderate right knee effusion with tenderness to palpation along the lateral joint line. Range of motion is painful secondary to swelling and effusion. Rest of his exam is overall unremarkable. There is no signs of erythema and his range of motion is guarded secondary pain without any clinical evidence of septic arthritis. Right knee aspiration performed yesterday revealed 31,000 white blood cells and is thus far negative for any growth. In addition, the Gram stain was also negative. He has been afebrile, WBC 12 and ESR mildly elevated at 21. X-ray examination revealed severe tricompartmental right knee arthritis. This is likely an exacerbation of underlying right knee arthritis. I recommend IV NSAIDs with initiation of physical therapy for progressive range of motion as tolerated. Weightbearing as tolerated. I will follow up the results when the synovial cultures are finalized tomorrow. Thanks for the consult. Please call with additional questions. Amaury Washington Jr., MD Jan 06, 2017 13:28
[2017-01-06 16:12] VITALS: BP 147/63; PULSE 81; RESP 19; TEMP 98.1; O2SAT 99
[2017-01-06] MEDS ORDERED: IOHEXOL 350 MG/ML 10 ML VIAL (for RAD DIAG) IV ONE (17:03)
--- NOTE | 2017-01-06 17:42 | RADRPT ---
EXAM DATE/TIME: 01/06/2017 17:03 [facility] COMPARISON: No previous studies available for comparison. INDICATIONS : Swelling right knee IV CONTRAST: 100 cc Omnipaque 350 (iohexol) IV RADIATION DOSE: 7.31 CTDIvol (mGy) MEDICAL HISTORY : None SURGICAL HISTORY : None. ENCOUNTER: Initial ACUITY: 1 day PAIN SCALE: 4/10 LOCATION: Right knee TECHNIQUE: Volumetric scanning of the knee was performed. Using automated exposure control and adjustment of th e mA and/or kV according to patient size, radiation dose was kept as low as reasonably achievable to obtain optimal diagnostic quality images. FINDINGS: Large joint effusion. Large Nguyen cyst. 5 mm osteochondral body within Nguyen cyst. Moderate-sized tri compartment osteophytes. Mild medial and lateral compartment narrowing. Multiple subchondral cysts of the medial and lateral tibial condyles. No evidence of fracture. Quadriceps tendon and patellar tendon are intact. Integrity of the menisci cannot be rigorously evalu ated on CT without intra-articular contrast. PCL intact. ACL not well evaluated. CONCLUSION: Moderate osteoarthritic findings. Large joint effusion. Large Nguyen cyst. Menisci cannot be evaluated on CT without intra-articular contrast. Lm Velazquez MD on January 06, 2017 at 17:36 Board Certified Radiologist. This report was verified electronically.
[2017-01-06 20:00] VITALS: BP 145/78; PULSE 75; RESP 20; TEMP 100.2; O2SAT 98
[2017-01-07] VITALS: BP 125/77; PULSE 69; RESP 20; TEMP 97.6; O2SAT 98
[2017-01-07] MEDS ORDERED: PHARMACY ORDERED LAB ONE (00:45)
[2017-01-07] MEDS: VANCOMYCIN 1,500 MG/NS 500 ML IV SCH ×2 (01:00)
[2017-01-07] MEDS: HYDROmorphone HCL PF 1 MG/ML VIAL IV PUSH PRN ×5 (02:58→22:02)
[2017-01-07] MEDS: SODIUM CHLOR 0.9% 1000 ML INJ 1,000 ML IV SCH ×3 (03:02→17:22)
[2017-01-07 04:00] VITALS: BP 139/69; PULSE 59; RESP 20; TEMP 97.9; O2SAT 98
[2017-01-07] MEDS: LISINOPRIL 20 MG TAB PO SCH (07:58)
--- NOTE | 2017-01-07 09:40 | HHI.PR ---
Subjective Remarks still with pain right knee, persistent swelling, no overlying erythema Objective Vitals Vital Signs Date Time Temp Pulse Resp B/P Pulse Ox O2 Delivery O2 Flow Rate FiO2 01/07/17 04:00 97.9 59 20 139/69 98 01/07/17 00:00 97.6 69 20 125/77 98 01/06/17 20:00 100.2 75 20 145/78 98 01/06/17 16:12 98.1 81 19 147/63 99 01/06/17 10:30 97.4 74 19 137/74 98 I/O 01/06/17 01/06/17 01/06/17 01/07/17 01/07/17 01/07/17 07:00 15:00 23:00 07:00 15:00 23:00 Intake Total 200 ml 240 ml Output Total 375 ml 725 ml 400 ml Balance -175 ml -485 ml -400 ml Intake Oral 200 ml 240 ml Output Urine Total 375 ml 725 ml 400 ml # Bowel Movements 0 0 0 Result Diagram: 01/05/17 0650 01/07/17 0842 Imaging Last Impressions Lower Extremity CT 01/06/17 0000 Signed Impressions: Service Date/Time: January 17:03 - CONCLUSION: Moderate osteoarthritic findings. Large joint effusion. Large Nguyen cyst. Menisci cannot be evaluated on CT without intra-articular contrast. Lm Velazquez MD Knee X-Ray 01/05/17 0000 Signed Impressions: Service Date/Time: Thursday, January 05, 2017 06:48 - CONCLUSION: Severe osteoarthritis. Nolan Puga MD Objective Remarks awake and alert anicteric lungs clear regular rhythm abdomen soft, nontender right knee- + swelling, now able to do some at least 30 degrees flexion of the knee,, slight tenderness to touch, not hot, good peripheral pulses, no calf tenderness Procedures 01/05- right knee arthrocentesis A/P Problem List: (1) Inflammatory arthritis ICD Code: M19.90 Status: Acute Assessment and Plan 66 years old male- does a lot of yard work - increasing difficulty ambulation for the past few months- has been wearing knee brace on and off with no help then this past 3 days rapid increase in swelling and pain. denies any fever or chills Right knee effusion r/o septic arthritis S/P arthrocentesis underlying OA - per report gross purulence on tap, studies with mild leukocytosis on synovial fluid studies , negative for crystals - get an MRI of the knee.- r/o underlying any anatomical/ligament/meniscal tear - ESR, CRP elevated but not impressive. trial of Nsaids- - Orthopedics surgery ff. - continue on IV antibiotics for now- Vanco/Rocephin- ff cultures - get ID consult ? need for antibiotics - PT consult- weightbearing needs History of hypertension -continue Carlos Crump MD Jan 07, 2017 09:40
[2017-01-07 09:41] VITALS: BP 141/89; PULSE 81; RESP 18; TEMP 97.1; O2SAT 99
[2017-01-07] MEDS ORDERED: INFLUENZA VIRUS VACCINE (QUADRIVALENT) 0.5 ML SYR IM ONE (10:00)
[2017-01-07] MEDS ORDERED: IBUPROFEN 800 MG TAB PO ONE (10:00)
[2017-01-07] MEDS ORDERED: PNEUMOCOCCAL POLYVALENT INJ 25 MCG/0.5 ML SYR IM ONE (10:00)
--- NOTE | 2017-01-07 10:45 | PD.CONS ---
History of Present Illness Service Infectious disease Consult Requested By Dr Fany Brooks Reason for Consult Evaluate patient with right knee pain and swelling, evaluate for possible septic joint Primary Care Physician No Primary Care Physician Diagnoses: History of Present Illness 66 y/o male with history of hypertension who presented to ER with pain to the right knee. 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 however after working 3 days ago the right knee pain was exacerbated worsened and became associated with swelling and difficulty to bear weight. pain is moderate to severe in intensity, worse with any movement of the right leg and localized to the right knee. he says that the pain got worse to the extent that he couldn't sleep last night. he says that his knee ' feels warm' .he denies any fever or chills.there's no history of recent trauma. no pain at rest. Not associated with any paresthesia or numbness to the right lower extremity. His pain is mildly improved since admission yesterday. He had a knee arthrocentesis in the emergency department yesterday and cultures were sent to laboratory. Past Family Social History Allergies: Coded Allergies: Codeine (Verified Adverse Reaction, Severe, "itch", 07/05/16) Ultram (Verified Adverse Reaction, Severe, Nausea/Vomiting, 07/05/16) Past Medical History Hypertension Arthritis Past Surgical History Appendectomy Active Ordered Medications Tylenol Rocephin Dilaudid Prinivil Zofran Vancomycin Social History Works morning the lawn No smoking No significant alcohol abuse No substance abuse Physical Exam Vital Signs Vital Signs Date Time Temp Pulse Resp B/P Pulse Ox O2 Delivery O2 Flow Rate FiO2 01/07/17 09:41 97.1 81 18 141/89 99 01/07/17 04:00 97.9 59 20 139/69 98 01/07/17 00:00 97.6 69 20 125/77 98 01/06/17 20:00 100.2 75 20 145/78 98 01/06/17 16:12 98.1 81 19 147/63 99 Physical Exam GENERAL: Patient is a well-nourished, well-developed CM, awake and alert, not in respiratory distress. SKIN: Warm and dry. No generalized rash, no ecchymoses and no evidence of embolic lesions. HEAD: Atraumatic. Normocephalic. No temporal wasting, or tenderness. EYES: [place] conjunctiva. No petechia or hemorrhage. Pupils equal, round and reactive to light. Extraocular movements full and intact. No scleral icterus. No injection or drainage. EARS, NOSE AND THROAT: Nose without bleeding or purulent nasal discharge. No sinus tenderness. Mucous membranes pink and moist. No oral lesions noted. No exudate. No oral thrush. NECK: Trachea midline. Supple and not tender, no meningeal signs CARDIOVASCULAR: Regular rate and rhythm. No murmurs, rubs or gallops heard RESPIRATORY: Clear to auscultation. Breath sounds equal bilaterally. No rales , wheezing or rhonchi ABDOMEN: Soft, non-tender, nondistended. Bowel sounds present and normoactive. No guarding. No rebound. No organomegaly. EXTREMITIES: No clubbing, cyanosis. LLE unremarkable. RLE - R knee is swollen, no erythema, has limited ROM due to pain from swelling, but patient will flex it when asked. No calf tenderness. Well perfused and warm. NEUROLOGICAL: Awake and alert. Cranial nerves grossly intact. Motor grossly within normal limits. PSYCHIATRIC: Normal affect, calm and cooperative. LINE: No evidence of infection Laboratory Laboratory Tests Test 01/07/17 01/07/17 00:50 08:42 Vancomycin Level Trough 12.8 Creatinine 0.53 Estimat Glomerular Filtration 156 Rate Date/Time Procedure Status Source Growth 01/06/17 07:28 Aerobic Blood Culture Received Blood Peripheral Pending 01/06/17 07:28 Anaerobic Blood Culture Received Blood Peripheral Pending 01/05/17 10:15 Gram Stain - Final Resulted Fluid Synovial Fluid 01/05/17 10:15 Body Fluid Culture - Preliminary Resulted Fluid Synovial Fluid NO GROWTH IN 24 HOURS. Result Diagram: 01/05/17 0650 01/07/17 0842 Imaging RADIOLOGY STUDIES/FILMS REVIEWED Lower Extremity CT 01/06/17 0000 Signed Impressions: Service Date/Time: January 17:03 - CONCLUSION: Moderate osteoarthritic findings. Large joint effusion. Large Nguyen cyst. Menisci cannot be evaluated on CT without intra-articular contrast. Lm Velazquez MD Knee X-Ray 01/05/17 0000 Signed Impressions: Service Date/Time: Thursday, January 05, 2017 06:48 - CONCLUSION: Severe osteoarthritis. Nolan Puga MD Assessment and Plan Assessment and Plan IMPRESSION R knee effusion and pain, fluid with inflammatory cells, no crystals, likely inflammatory due to OA - no erythema, he will move R knee joint though limited due to swelling and pain - ESR only 21, CRP mildly elevated, WBC normal, no fever Hx HTN RECOMMENDATION Ortho evaluating patient MRI has been ordered Change Abx to Ancef If fluid C/S negative, D/C Abx - once off Abx, he is stable for D/C from ID standpoint this I will have [facility] follow the C/S results, and if (+), to have ID MD regional transfer liaison address the (+) C/S Ortho has recommended NSAID Thank you for this consultation Discussed Condition With Explained plan to the patient Nelly Samuel MD Jan 07, 2017 10:45
[2017-01-07] MEDS ORDERED: GADODIAMIDE PF 287 MG/ML 5 ML VIAL (for RAD MRI) IV ONE (11:28)
--- NOTE | 2017-01-07 12:51 | RADRPT ---
EXAM DATE/TIME: 01/07/2017 10:51 [facility] COMPARISON: No previous studies available for comparison. INDICATIONS : Meniscus tear. Right knee pain with swelling. CONTRAST: 16 cc Omniscan (gadodiamide) IV MEDICAL HISTORY : Hypertension. SURGICAL HISTORY : Appendectomy. Left testicle removed. ENCOUNTER: Initial ACUITY: 1 day PAIN SCORE: 8/10 LOCATION: Right Knee. TECHNIQUE: Multiplanar multisequence MRI examination of the knee was performed with and without contrast. FINDINGS: CRUCIATE LIGAMENTS: ACL and PCL are intact. MENISCI: Large complex degenerative type tear of the lateral meniscus involving anterior horn posterior horn a nd body. Lateral extrusion of the body of the lateral meniscus. Moderate-sized horizontal tear of the posterior horn of the medial meniscus extending to the undersurface. COLLATERAL LIGAMENTS: MCL and LCL complexes are intact. BONE/CARTILAGE: Moderate-sized medial and lateral compartment osteophytes. Severe diffuse articular cartilage thinnin g of the lateral compartment weightbearing surfaces. Moderate severity subchondral reactive bony pepper ge of the lateral femoral condyle and lateral tibial condyle. Severe articular cartilage thinning of the anterior weight-bearing surfaces of the medial compartment. Subchondral cyst and adjacent reactiv e bony change the medial aspect of the medial tibial condyle. Moderate severity surface irregularity and articular cartilage thinning of the central femoral trochlea. MISCELLANEOUS: Large joint effusion. Large Nguyen cyst. 6 mm osteochondral body within the Nguyen cyst. Extensor mecha nism intact. POST-CONTRAST: Nonspecific diffuse synovial enhancement as would be expected with large joint effusion. CONCLUSION: 1. Osteoarthritic findings of the right knee. Moderate-sized medial lateral compartment osteophytes. Severe diffuse lateral compartment of correlation. Severe focal medial compartment chondromalacia. Mo derate central femoral trochlear chondromalacia. 2. Large complex degenerative type tear of the lateral meniscus. 3. Moderate-sized horizontal medial meniscus tear. 4. Large joint effusion. Large Nguyen cyst. Lm Velazquez MD on January 07, 2017 at 12:44 Board Certified Radiologist. This report was verified electronically.
[2017-01-07] MEDS ORDERED: VANCOMYCIN INJ 1,750 MG in SODIUM CHLORID 0.9% 500 ML INJ 500 ML IV SCH (13:00)
[2017-01-07 13:43] VITALS: BP 155/90; PULSE 64; RESP 19; TEMP 98.1; O2SAT 99
[2017-01-07 16:15] VITALS: BP 126/86; PULSE 78; RESP 18; TEMP 97.9; O2SAT 98
[2017-01-07 20:00] VITALS: BP 147/76; PULSE 75; RESP 20; TEMP 98.5; O2SAT 94
[2017-01-08] VITALS: BP 164/70; PULSE 61; RESP 18; TEMP 98.4; O2SAT 98
[2017-01-08] MEDS: SODIUM CHLOR 0.9% 1000 ML INJ 1,000 ML IV SCH ×2 (00:45→09:04)
[2017-01-08] MEDS: HYDROmorphone HCL PF 1 MG/ML VIAL IV PUSH PRN ×3 (02:13→11:01)
[2017-01-08 06:39] VITALS: BP 159/81; PULSE 72; RESP 18; TEMP 98.9; O2SAT 97
[2017-01-08] MEDS: LISINOPRIL 20 MG TAB PO SCH (08:15)
[2017-01-08 08:56] VITALS: BP 146/70; PULSE 62; RESP 19; TEMP 97.7; O2SAT 99
[2017-01-08] MEDS ORDERED: WALKER WHEELS/F1 MIS (11:23)
--- NOTE | 2017-01-08 11:39 | HHI.PR ---
Subjective Remarks swelling slightly decreased, more range of motion/flexion of the knee pain controlled with pain meds Objective Vitals Vital Signs Date Time Temp Pulse Resp B/P Pulse Ox O2 Delivery O2 Flow Rate FiO2 01/08/17 08:56 97.7 62 19 146/70 99 01/08/17 06:39 98.9 72 18 159/81 97 01/08/17 00:00 98.4 61 18 164/70 98 01/07/17 22:32 18 01/07/17 20:00 98.5 75 20 147/76 94 01/07/17 16:15 97.9 78 18 126/86 98 01/07/17 13:43 98.1 64 19 155/90 99 I/O 01/07/17 01/07/17 01/07/17 01/08/17 01/08/17 01/08/17 07:00 15:00 23:00 07:00 15:00 23:00 Intake Total 537 ml 840 ml Output Total 400 ml 370 ml 1050 ml 350 ml Balance -400 ml 167 ml -210 ml -350 ml Intake Oral 840 ml IV Total 537 ml Output Urine Total 400 ml 370 ml 1050 ml 350 ml # Voids 2 # Bowel Movements 0 1 0 Result Diagram: 01/05/17 0650 01/07/17 0842 Imaging Last Impressions Knee MRI 01/07/17 0000 Signed Impressions: Service Date/Time: Saturday, January 07, 2017 10:51 - CONCLUSION: 1. Osteoarthritic findings of the right knee. Moderate-sized medial lateral compartment osteophytes. Severe diffuse lateral compartment of correlation. Severe focal medial compartment chondromalacia. Moderate central femoral trochlear chondromalacia. 2. Large complex degenerative type tear of the lateral meniscus. 3. Moderate-sized horizontal medial meniscus tear. 4. Large joint effusion. Large Nguyen cyst. Lm Velazquez MD Lower Extremity CT 01/06/17 0000 Signed Impressions: Service Date/Time: January 17:03 - CONCLUSION: Moderate osteoarthritic findings. Large joint effusion. Large Nguyen cyst. Menisci cannot be evaluated on CT without intra-articular contrast. Lm Velazquez MD Knee X-Ray 01/05/17 0000 Signed Impressions: Service Date/Time: Thursday, January 05, 2017 06:48 - CONCLUSION: Severe osteoarthritis. Nolan Puga MD Objective Remarks awake and alert anicteric lungs clear regular rhythm abdomen soft, nontender right knee- decrease swelling, now able to do some at least 30 degrees flexion of the knee,non tender, no erythema, no calf swelling, good peripheral pulses Procedures 01/05- right knee arthrocentesis A/P Problem List: (1) Inflammatory arthritis ICD Code: M19.90 Status: Acute Assessment and Plan 66 years old male- does a lot of yard work - increasing difficulty ambulation for the past few months- has been wearing knee brace on and off with no help then this past 3 days rapid increase in swelling and pain. denies any fever or chills Right knee effusion S/P arthrocentesis frome severe OA- per report gross purulence on tap, studies with leukocytosis on synovial fluid studies , negative for crystals Meniscal tears- right knee - synovial fluid cultures negative for crystals and microorganism,. DC Ancef - Motrin prn on a full stonmach. Percocet prn for pain -DC today- OP ff up with Dr. Washington- arthroscopy as OP History of hypertension -continue meds HOme today wheeled walker. WBAT heart healthy diet Carlos Brooks MD Jan 08, 2017 11:39
[2017-01-08] MEDS ORDERED: OXYC1TAB35 PO (11:42)
[2017-01-08] MEDS ORDERED: oxyCODONE/ACETAMINOPHEN 7.5 MG/325 MG TAB PO PRN (11:45)
--- NOTE | 2017-01-08 11:48 | HHI.FF ---
Face to Face Verification Diagnosis: (1) Chronic pain of right knee (2) severeOA (3) Hypertension Physical Therapy Order: Evaluate and Treat, Improve ambulation, Strength and gait training Home Health Nursing Order: Medical education Signs/symptoms of disease process Nursing assessment with vital signs U[employer] Interaction Designer Order: To Evaluate: Living conditions/environment, Support services I have seen patient Rickey Diez on 01/08/17. My clinical findings support the need for the requested home health care services because: Ltd mobility - disease progression Need for psychosocial assistance High risk of falls I certify that my clinical findings support that this patient is homebound because: Unsteady gait/balance Carlos Brooks MD Jan 08, 2017 11:48
--- NOTE | 2017-01-08 11:48 | HHI.DS ---
Discharge Summary Admission Date January 05, 2017 at 12:39 Discharge Date: Jan 08, 2017 Admitting Diagnosis R Knee Pain, Poss Septic Arthritis (1) Inflammatory arthritis ICD Code: M19.90 Diagnosis: Principal Procedures 01/05- right knee arthrocentesis Brief History - From Admission patient is a 66 y/o male with history of hypertension who presented to ER with pain to the right knee. 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 but it started to get worse few days ago.pain is moderate to severe in intensity, worse with any movement of the right leg and localized to the right knee. he says that the pain got worse to the extent that he couldn't sleep last night. he says that his knee ' feels warm'.he denies any fever or chills.there's no history of recent trauma. CBC/BMP: 01/05/17 0650 01/07/17 0842 Significant Findings Laboratory Tests Test 01/06/17 01/07/17 01/07/17 07:28 00:50 08:42 Creatinine 0.59 MG/DL 0.53 MG/DL (0.60-1.30) (0.60-1.30) Vancomycin Level Trough 12.8 MCG/ML (5.0-10.0) Imaging Last Impressions Knee MRI 01/07/17 0000 Signed Impressions: Service Date/Time: Saturday, January 07, 2017 10:51 - CONCLUSION: 1. Osteoarthritic findings of the right knee. Moderate-sized medial lateral compartment osteophytes. Severe diffuse lateral compartment of correlation. Severe focal medial compartment chondromalacia. Moderate central femoral trochlear chondromalacia. 2. Large complex degenerative type tear of the lateral meniscus. 3. Moderate-sized horizontal medial meniscus tear. 4. Large joint effusion. Large Nguyen cyst. Lm Velazquez MD Lower Extremity CT 01/06/17 0000 Signed Impressions: Service Date/Time: January 17:03 - CONCLUSION: Moderate osteoarthritic findings. Large joint effusion. Large Nguyen cyst. Menisci cannot be evaluated on CT without intra-articular contrast. Lm Velazquez MD Knee X-Ray 01/05/17 0000 Signed Impressions: Service Date/Time: Thursday, January 05, 2017 06:48 - CONCLUSION: Severe osteoarthritis. Nolan Puga MD PE at Discharge awake and alert anicteric lungs clear regular rhythm abdomen soft, nontender right knee- decrease swelling, now able to do some at least 30 degrees flexion of the knee,non tender, no erythema, no calf swelling, good peripheral pulses Pt update on day of discharge pain controlled, afebrile d/w results and findings Hospital Course 66 years old male- does a lot of yard work - increasing difficulty ambulation for the past few months- has been wearing knee brace on and off with no help then this past 3 days rapid increase in swelling and pain. denies any fever or chills Right knee effusion S/P arthrocentesis frome severe OA- per report gross purulence on tap, studies with leukocytosis on synovial fluid studies , negative for crystals Meniscal tears- right knee - synovial fluid cultures negative for crystals and microorganism,. DC Ancef - Motrin prn on a full stonmach. Percocet prn for pain -DC today- OP ff up with Dr. Washington- arthroscopy as OP History of hypertension -continue meds HOme today wheeled walker. WBAT heart healthy diet Pt Condition on Discharge: Stable Discharge Disposition: Disch w/ Home Health Serv Discharge Time: <= 30 minutes Discharge Instructions DIET: Follow Instructions for: Heart Healthy Diet Speech Therapy-Diet Recommends: Regular Activities you can perform: Weight Bearing as Yonny Follow up Referrals: Orthopedics - 1 Week with Amaury Washington Jr., MD PCP Follow-up - 01/12/17 with PCP choice New Medications: Walker with Front Wheels (Walker with Front Wheels) 1 Mis Mis 1 EA .ROUTE DIRECTED severeOA #1 Ref 0 EA Oxycodone-Acetaminophen (Oxycodone-Acetaminophen) 7.5-325 mg Tab 1 TAB PO Q6H PRN pain knee #30 Ref 0 TAB Continued Medications: Lisinopril (Lisinopril) 20 Mg Tab 20 MG PO DAILY #30 Ref 0 TAB Discontinued Medications: Naproxen Sodium (Aleve Arthritis) 220 Mg Tab 220 MG PO BID TAB Carlos Brooks MD Jan 08, 2017 11:48
[2017-01-08] MEDS ORDERED: PHARMACY ORDERED LAB ONE (12:45)
== END 2017-01-08 12:16 | disposition home or self-care (01) | DRG 554 ==
LOC: PHED 06:13 → PHEDA 12:39 → N05A 14:35
PROVIDERS: ADMIT Internal Medicine; ATTEND Internal Medicine
PROC: 0S9C3ZZ Drainage of Right Knee Joint, Percutaneous Approach (ICD-10-PCS; principal; 2017-01-05)
DX: M06.4 Inflammatory polyarthropathy (principal); I10 Essential (primary) hypertension; M17.11 Unilateral primary osteoarthritis, right knee; M25.461 Effusion, right knee; M71.21 Synovial cyst of popliteal space [Baker], right knee
CPT/HCPCS: 20610; 73564; 73701; 73723; 80048; 80202; 82565; 84550; 85025; 85610; 85652; 85730; 86140; 87040; 87070; 87205; 89051; 89060; 96361; 96365; 96375; A9579; J0690; J0696; J1170; J2405; J3370; J7030; J7040; Q9967

== ENCOUNTER 2017-01-10 11:58 | Emergency (ER) | payer MEDICARE, OTHER ==
[~2017-01-10] VITALS: Ht 177.8 cm; Wt 79.0 kg
[~2017-01-10 11:58] MED LIST changes: -IBUP400T20 PO; -NORC5TAB PO; +OXYC1TAB35 PO; +WALKER WHEELS/F1 MIS
[2017-01-10 12:00] VITALS: BP 128/78; PULSE 71; RESP 18; TEMP 97.9; O2SAT 99
--- NOTE | 2017-01-10 12:15 | PD ---
Physical Exam Time Seen by Provider: 12:14 Narrative 66 y/o male ehre with worsenign R calf/knee pain/swelling. Admitted on 01/05 to r/o septic arthritis, discharged on 01/08. Vital signs reviewed. Seen at triage desk. Awaiting bed placement. Data Data Last Documented VS Vital Signs Date Time Temp Pulse Resp B/P Pulse Ox O2 Delivery O2 Flow Rate FiO2 01/10/17 12:00 97.9 71 18 128/78 99 MDM Medical Record Reviewed: Yes Supervised Visit with ELIZABETH: Hayden Hamlin Jan 10, 2017 12:15
== END 2017-01-10 15:54 | disposition left against medical advice (07) ==
LOC: NED 11:58
DX: M25.561 Pain in right knee (principal)
CPT/HCPCS: 99281

== ENCOUNTER 2017-02-21 09:12 | Emergency (ER) | payer OTHER ==
[2017-02-21 09:15] VITALS: PULSE 78; RESP 20; TEMP 98.5; O2SAT 98
[2017-02-21 09:23] VITALS: BP 140/90
--- NOTE | 2017-02-21 09:50 | PD ---
HPI Chief Complaint: Musculoskeletal Complaint Time Seen by Provider: 09:34 Travel History International Travel<30 days: No Contact w/Intl Traveler<30days: No Traveled to known affect area: No History of Present Illness HPI This 66-year-old male complaining of pain in his right shoulder. He says he been having the pain for about 2 weeks. Started after he was pulling a cord started on more in the since been unable to look for. It hurts to move the shoulder in all directions. He points to the front of the shoulder as the site of pain. There is no direct trauma. He's been taking anti-inflammatories without response. The pain is quite severe and keeps him awake at night. The pain extends from the shoulder to the mid humerus area PFSH Past Medical History Arthritis: Yes (RT KNEE) Cancer: No Diminished Hearing: No Endocrine: No Gastrointestinal Disorders: No Genitourinary: No Hypertension: Yes Implanted Vascular Access Dvce: No Musculoskeletal: Yes ("right knee problems,knee pops out,can't afford to f/u with ortho") Neurologic: No Psychiatric: No Reproductive: No Respiratory: No Immunizations Current: No Sleep Apnea: No PNEUMOCCOCAL Vaccine (Year): 2 Past Surgical History Appendectomy: Yes Ear Surgery: No Genitourinary Surgery: Yes (LEFT TESTICLE REMOVED 20 YEARS AGO) Neurologic Surgery: No Oral Surgery: Yes ("bilateral nasal surgery for polyps") Other Surgery: Yes ("left testicle removed") Social History Alcohol Use: No (DENIES) Tobacco Use: No Substance Use: Yes Allergies-Medications (Allergen,Severity, Reaction): Coded Allergies: Codeine (Verified Adverse Reaction, Severe, "itch", 02/21/17) Ultram (Verified Adverse Reaction, Severe, Nausea/Vomiting, 02/21/17) Reported Meds & Prescriptions Reported Meds & Active Scripts Active Reported Lisinopril 20 Mg Tab 20 Mg PO DAILY Review of Systems General / Constitutional: No: Fever, Chills Eyes: No: Diploplia, Blurred Vision HENT: No: Headaches Cardiovascular: No: Chest Pain or Discomfort Respiratory: No: Cough, Shortness of Breath Gastrointestinal: No: Nausea, Vomiting Genitourinary: No: Urgency, Frequency Musculoskeletal: Positive: Myalgias, Pain Skin: No Rash, No Itching Neurologic: No: Weakness, Dizziness Psychiatric: No: Anxiety, Depression Physical Exam Narrative GENERAL: Well-developed male SKIN: Focused skin assessment warm/dry. HEAD: Atraumatic. Normocephalic. EYES: Pupils equal and round. No scleral icterus. No injection or drainage. ENT: No nasal bleeding or discharge. Mucous membranes pink and moist. NECK: Trachea midline. No JVD. MUSCULOSKELETAL: No obvious deformities. No clubbing. No cyanosis. No edema. Examination of the right shoulder there is some tenderness in the area of the proximal head of the biceps. He has limited flexion at the elbow. A abduction of the shoulder is also painful NEUROLOGICAL: Awake and alert. No obvious cranial nerve deficits. Motor grossly within normal limits. Normal speech. PSYCHIATRIC: Appropriate mood and affect; insight and judgment normal. Data Data Last Documented VS Vital Signs Date Time Temp Pulse Resp B/P Pulse Ox O2 Delivery O2 Flow Rate FiO2 02/21/17 09:23 140/90 02/21/17 09:15 98.5 78 20 98 Orders Shoulder, Complete (>2vws) (02/21/17 09:43) [facility] Medical Decision Making Medical Screen Exam Complete: Yes Emergency Medical Condition: Yes Medical Record Reviewed: Yes Differential Diagnosis Differential includes biceps avulsion, rotator cuff tear, bursitis Narrative Course X-ray of the shoulder was obtained and is read as negative. I believe the main problem is a tear of the head of the biceps. Patient is taking anti- inflammatory medication not able to sleep. I will prescribe some pain medication to use for a few days. To follow-up with orthopedics. Diagnosis Primary Impression: Tear of right biceps muscle Qualified Code: S46.211A - Tear of right biceps muscle, initial encounter Scripts Hydrocodone-Acetaminophen (Lortab)7.5-325 Mg Tab1 Tab PO Q4H PRN (PAIN) #30 TAB Ref 0 Prov:Simon Araya MD 02/21/17 Disposition: 01 DISCHARGE HOME Condition: Stable Simon Araya MD Feb 21, 2017 09:50
--- NOTE | 2017-02-21 10:19 | RADRPT ---
EXAM DATE/TIME: 02/21/2017 10:00 [facility] COMPARISON: No previous studies available for comparison. 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 MEDICAL HISTORY : None. SURGICAL HISTORY : None. ENCOUNTER: Initial ACUITY: 2 weeks PAIN SCORE: 10/10 LOCATION: Right shoulder FINDINGS: Multiple view examination of the right shoulder demonstrates no evidence of fracture or dislocation. The glenohumeral and acromioclavicular joints are maintained. There is normal range of motion betwe en internal and external rotation. Bony mineralization is normal. CONCLUSION: Unremarkable examination of the right shoulder. Jason Mon MD on February 21, 2017 at 10:18 Board Certified Radiologist. This report was verified electronically.
[2017-02-21] MEDS ORDERED: HYDR-3534 PO (10:30)
[2017-02-21] MEDS ORDERED: oxyCODONE/ACETAMINOPHEN 5 MG/325 MG TAB PO ONE (10:45)
== END 2017-02-21 11:21 | disposition home or self-care (01) ==
LOC: PHEFT 09:12
DX: S46.211A Strain of muscle, fascia and tendon of other parts of biceps, right arm, initial encounter (principal); X50.0XXA Overexertion from strenuous movement or load, initial encounter; Y93.89 Activity, other specified; Y92.9 Unspecified place or not applicable
CPT/HCPCS: 73030; 99283

== ENCOUNTER 2017-03-30 13:13 | Emergency (ER) | payer OTHER ==
[~2017-03-30] VITALS: Ht 180.3 cm; Wt 75.3 kg
[~2017-03-30 13:13] MED LIST changes: +HYDR-3534 PO; -OXYC1TAB35 PO; -WALKER WHEELS/F1 MIS
[2017-03-30 13:21] VITALS: BP 187/127; PULSE 87; RESP 18; TEMP 98.1; O2SAT 99
[2017-03-30 13:38] VITALS: BP_SYST 67; BP_SYST 74; BP_SYST 82; BP_DIAS 49; BP_DIAS 50; BP_DIAS 51
[2017-03-30] MEDS ORDERED: SODIUM CHLOR 0.9% 1000 ML INJ 1,000 ML IV SCH ×2 (14:15→15:30)
[2017-03-30 14:23] LABS: AUTOMATED NEUTROPHIL # 9.1 TH/MM3 (1.8-7.7); BASOPHIL # 0.1 TH/MM3 (0-0.2); BASOPHIL % 0.5 % (0.0-2.0); EOSINOPHIL # 0.7 TH/MM3 (0-0.4); EOSINOPHIL % 5.5 % (0.0-4.0); HEMATOCRIT 38.7 % (39.0-51.0); HEMO FLAGS DIFF FINAL; LYMPH % 13.7 % (9.0-44.0); LYMPHOCYTE # 1.7 TH/MM3 (1.0-4.8); MEAN CELL VOLUME 90.1 FL (80.0-100.0); MEAN CORPUSCULAR HEMOGLOBIN 31.7 PG (27.0-34.0); MEAN CORPUSCULAR HGB CONC 35.2 % (32.0-36.0); MONO % 7.2 % (0.0-8.0); NEUT % 73.1 % (16.0-70.0); PLATELET COUNT 399 TH/MM3 (150-450); RED BLOOD COUNT 4.29 MIL/MM3 (4.50-5.90); RED CELL DISTRIBUTION WIDTH 13.1 % (11.6-17.2); WHITE BLOOD COUNT 12.5 TH/MM3 (4.0-11.0)
[2017-03-30] MEDS ORDERED: MORPHINE SULFATE 4 MG/ML INJ IV PUSH ONE (14:30)
[2017-03-30 14:34] LABS: CHLORIDE 98 MEQ/L (98-107); POTASSIUM 4.3 MEQ/L (3.5-5.1); SODIUM (NA) 132 MEQ/L (136-145)
[2017-03-30 14:38] LABS: ANION GAP 12 MEQ/L (5-15); BICARBONATE 22.5 MEQ/L (21.0-32.0); BLOOD UREA NITROGEN 37 MG/DL (7-18)
[2017-03-30 14:41] LABS: ALT (GPT) 38 U/L (12-78); AST (GOT) 32 U/L (15-37); GLOMERULAR FILTRATION RATE 23 ML/MIN (>89)
[2017-03-30 14:42] LABS: TOTAL BILIRUBIN ADULT 0.9 MG/DL (0.2-1.0)
[2017-03-30 14:43] LABS: CREATINE KINASE 302 U/L (39-308)
[2017-03-30 14:44] LABS: ALKALINE PHOSPHATASE 80 U/L (45-117)
--- NOTE | 2017-03-30 14:50 | RADRPT ---
EXAM DATE/TIME: 03/30/2017 14:14 [facility] COMPARISON: SHOULDER RIGHT COMPLETE (>2VWS), February 21, 2017, 10:00. INDICATIONS : Right shoulder pain after doing repetitive motion at work. MEDICAL HISTORY : None. SURGICAL HISTORY : None. ENCOUNTER: Initial ACUITY: 3 days PAIN SCORE: 10/10 LOCATION: Right entire shoulder FINDINGS: Multiple view examination of the right shoulder demonstrates no evidence of fracture or dislocation. The glenohumeral and acromioclavicular joints are maintained. There is normal range of motion betwe en internal and external rotation. Bony mineralization is normal. CONCLUSION: No acute disease. Nolan Puga MD on March 30, 2017 at 14:48 Board Certified Radiologist. This report was verified electronically.
[2017-03-30] MEDS ORDERED: ACETAMINOPHEN/HYDROcodone 325 MG/5 MG TAB PO ONE (15:15)
[2017-03-30] MEDS ORDERED: HYDR-3533 PO (15:28)
--- NOTE | 2017-03-30 15:29 | PD ---
HPI Chief Complaint: Dizziness Time Seen by Provider: 14:01 Travel History International Travel<30 days: No Contact w/Intl Traveler<30days: No Traveled to known affect area: No History of Present Illness HPI Is a 66-year-old man presents emergent [place] of right arm and shoulder pain source for the past couple weeks, especially with any moving. He states he was pulling on them tractor when he first had the a pull cord for a lawnmower when he first got the pain. Was seen and diagnosed the biceps tendon tear. Suggestive for a little lightheaded and dizzy, he thinks from overexerting himself and he, no other complaints. History Past Medical History Medical History: Denies Significant Hx PNEUMOCCOCAL Vaccine (Year): 2 Social History Alcohol Use: No (DENIES) Tobacco Use: No Allergies-Medications (Allergen,Severity, Reaction): Coded Allergies: codeine (Unverified Adverse Reaction, Severe, "itch", 03/30/17) tramadol (Unverified Adverse Reaction, Severe, Nausea/Vomiting, 03/30/17) Reported Meds & Prescriptions Reported Meds & Active Scripts Active Reported Lisinopril 20 Mg Tab 20 Mg PO DAILY Review of Systems Except as stated in HPI: all other systems reviewed are Neg Physical Exam Narrative GENERAL: Well-appearing 66-year-old man, no acute distress. SKIN: Focused skin assessment warm/dry. HEAD: Atraumatic. Normocephalic. EYES: Pupils equal and round. No scleral icterus. No injection or drainage. ENT: No nasal bleeding or discharge. Mucous membranes pink and moist. NECK: Trachea midline. No JVD. CARDIOVASCULAR: Regular rate and rhythm. No murmur appreciated. RESPIRATORY: No accessory muscle use. Clear to auscultation. Breath sounds equal bilaterally. GASTROINTESTINAL: Abdomen soft, non-tender, nondistended. Hepatic and splenic margins not palpable. MUSCULOSKELETAL: No obvious deformities. Some pain and tenderness on the anterior brachium in the right upper extremity. Pain with any attempted range of motion of the shoulder including internal and external rotation. He can passively extend it and flex it up to about 90. Actively much less. Distally is neurovascularly intact. NEUROLOGICAL: Awake and alert. No obvious cranial nerve deficits. Motor grossly within normal limits. Normal speech. PSYCHIATRIC: Appropriate mood and affect; insight and judgment normal. Data Data Last Documented VS Vital Signs Date Time Temp Pulse Resp B/P (MAP) Pulse Ox O2 Delivery O2 Flow Rate FiO2 03/30/17 13:38 80 74/51 (59) 82 82/50 (61) 100 67/49 (55) 03/30/17 13:34 16 99 03/30/17 13:21 98.1 Orders Orders Complete Blood Count With Diff (03/30/17 14:11) Comprehensive Metabolic Panel (03/30/17 14:11) Shoulder, Complete (>2vws) (03/30/17 ) Sodium Chlor 0.9% 1000 Ml Inj (Ns 1000 M (03/30/17 14:15) Creatine Kinase (Cpk) (03/30/17 14:11) Morphine Inj (Morphine Inj) (03/30/17 14:30) Labs Laboratory Tests Test 03/30/17 13:40 White Blood Count 12.5 TH/MM3 Red Blood Count 4.29 MIL/MM3 Hemoglobin 13.6 GM/DL Hematocrit 38.7 % Mean Corpuscular Volume 90.1 FL Mean Corpuscular Hemoglobin 31.7 PG Mean Corpuscular Hemoglobin Concent 35.2 % Red Cell Distribution Width 13.1 % Platelet Count 399 TH/MM3 Mean Platelet Volume 7.8 FL Neutrophils (%) (Auto) 73.1 % Lymphocytes (%) (Auto) 13.7 % Monocytes (%) (Auto) 7.2 % Eosinophils (%) (Auto) 5.5 % Basophils (%) (Auto) 0.5 % Neutrophils # (Auto) 9.1 TH/MM3 Lymphocytes # (Auto) 1.7 TH/MM3 Monocytes # (Auto) 0.9 TH/MM3 Eosinophils # (Auto) 0.7 TH/MM3 Basophils # (Auto) 0.1 TH/MM3 CBC Comment DIFF FINAL Differential Comment Blood Urea Nitrogen 37 MG/DL Creatinine 2.80 MG/DL Random Glucose 108 MG/DL Total Protein 8.5 GM/DL Albumin 4.3 GM/DL Calcium Level 10.0 MG/DL Alkaline Phosphatase 80 U/L Aspartate Amino Transf (AST/SGOT) 32 U/L Alanine Aminotransferase (ALT/SGPT) 38 U/L Total Bilirubin 0.9 MG/DL Sodium Level 132 MEQ/L Potassium Level 4.3 MEQ/L Chloride Level 98 MEQ/L Carbon Dioxide Level 22.5 MEQ/L Anion Gap 12 MEQ/L Estimat Glomerular Filtration Rate 23 ML/MIN Total Creatine Kinase 302 U/L [facility] Medical Decision Making Medical Screen Exam Complete: Yes Emergency Medical Condition: Yes Interpretation(s) LABS: CBC remarkable for mild leukocytosis CMP remarkable for elevated BUN/creatinine, 37/2.8, elevated from 0.53 Differential Diagnosis Dehydration, kidney injury, dissection, muscle skeletal strain or sprain, other Narrative Course Medical decision making This 66-year-old male presents to the emergency department right shoulder pain. There is some question of elevated blood pressures on arrival, and a question of asymmetric blood pressures. I took it and I got symmetric blood pressures on both sides, little bit reduced. A little bit dehydrated. He's had a bump in his creatinine from baseline, this could be chronic. He has a primary care physician. We'll give IV fluid hydration, recommend repeat labs in the next several days, avoid NSAIDs. I don't think he has a dissection. There initially was concern for asymmetric blood pressures in no acute onset shoulder pain, this is clearly going on for some time. Diagnosis Primary Impression: Tear of right biceps muscle Additional Instructions: You need repeat check of your creatinine, blood test for your kidneys. Drink plenty of fluids. Avoid the heat dehydration until cleared by her primary physician. Return to the emergency department for any increased urination, dark colored urine, or any other new or worsening symptoms. Take Lortab as prescribed. Med/Other Pt SpecificInfo: Prescription(s) given, No Change to Meds Scripts Hydrocodone-Acetaminophen (Lortab) 5-325 Mg Tab 1-2 TAB PO Q6H Y for PAIN, #12 TAB 0 Refills Prov: Jason Robin MD 03/30/17 Disposition: 01 DISCHARGE HOME Condition: Stable Jason Robin MD Mar 30, 2017 15:29
[2017-03-30 15:33] VITALS: BP 91/57; PULSE 65; RESP 18; O2SAT 97
[2017-03-30 16:09] VITALS: BP 99/53
== END 2017-03-30 16:16 | disposition home or self-care (01) ==
LOC: PHED 13:13
DX: S46.211A Strain of muscle, fascia and tendon of other parts of biceps, right arm, initial encounter (principal); X50.0XXA Overexertion from strenuous movement or load, initial encounter
CPT/HCPCS: 73030; 80053; 82550; 85025; 96361; 96374; 99284; J2270; J7030

== ENCOUNTER 2017-04-22 11:34 | Emergency (ER) | payer OTHER ==
[~2017-04-22] VITALS: Ht 177.8 cm; Wt 69.0 kg
[~2017-04-22 11:34] MED LIST changes: +HYDR-3533 PO; -HYDR-3534 PO
[2017-04-22 11:38] VITALS: BP 110/60; PULSE 105; RESP 18; TEMP 97.8; O2SAT 97
--- NOTE | 2017-04-22 12:10 | PD ---
HPI Chief Complaint: Dizziness Time Seen by Provider: 12:10 Travel History International Travel<30 days: No Contact w/Intl Traveler<30days: No Traveled to known affect area: No History of Present Illness HPI 66-year-old male came to the emergency room with history of dizziness which was after he got a sharp pain in his right shoulder when he pulled the cord of the lawnmower. Patient says the pain was so sharp that he got 6 to his stomach and had to sit down because he was dizzy as well. His right shoulder is not good and he has history of rotator cuff disease that requires surgical treatment. He is waiting for his insurance company to get the approval. 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 Vital signs are stable. Patient has history of drug abuse in the past. Today he appears to be sober. Vital signs are stable. No radiation of the pain anywhere else. Pain is worse upon moving the arm. [facility] Past Medical History Narrative Medical list of his past medical, surgical, social and family history is reviewed from the nursing note. Arthritis: Yes (RT KNEE) Cancer: No Diminished Hearing: No Endocrine: No Gastrointestinal Disorders: No Genitourinary: No Hypertension: Yes Implanted Vascular Access Dvce: No Musculoskeletal: Yes ("right knee problems,knee pops out,can't afford to f/u with ortho") Neurologic: No Psychiatric: No Reproductive: No Respiratory: No Immunizations Current: No Sleep Apnea: No Tetanus Vaccination: > 5 Years Influenza Vaccination: Yes PNEUMOCCOCAL Vaccine (Year): 2 ?: Not Past Surgical History Appendectomy: Yes Ear Surgery: No Genitourinary Surgery: Yes (LEFT TESTICLE REMOVED 20 YEARS AGO) Neurologic Surgery: No Oral Surgery: Yes ("bilateral nasal surgery for polyps") Other Surgery: Yes ("left testicle removed") Social History Alcohol Use: No Tobacco Use: No Substance Use: No Allergies-Medications (Allergen,Severity, Reaction): Coded Allergies: codeine (Unverified Adverse Reaction, Severe, "itch", 04/22/17) tramadol (Unverified Adverse Reaction, Severe, Nausea/Vomiting, 04/22/17) Comments List of his allergies reviewed from the nursing note. Reported Meds & Prescriptions Reported Meds & Active Scripts Active Amlodipine (Amlodipine Besylate) 10 Mg Tab 10 Mg PO DAILY Reported Lisinopril 20 Mg Tab 20 Mg PO DAILY Narrative Medication List of his home medications reviewed from the nursing note. Review of Systems Except as stated in HPI: all other systems reviewed are Neg Physical Exam Narrative GENERAL: Awake, alert, anxious, moderate distress SKIN: Focused skin assessment warm/dry. HEAD: Atraumatic. Normocephalic. EYES: Pupils equal and round. No scleral icterus. No injection or drainage. ENT: No nasal bleeding or discharge. Mucous membranes pink and moist. NECK: Trachea midline. No JVD. CARDIOVASCULAR: Regular rate and rhythm. No murmur appreciated. RESPIRATORY: No accessory muscle use. Clear to auscultation. Breath sounds equal bilaterally. GASTROINTESTINAL: Abdomen soft, non-tender, nondistended. Hepatic and splenic margins not palpable. MUSCULOSKELETAL: No obvious deformities. No clubbing. No cyanosis. No edema. Decreased range of motion of the right shoulder due to pain. NEUROLOGICAL: Awake and alert. No obvious cranial nerve deficits. Motor grossly within normal limits. Normal speech. PSYCHIATRIC: Appropriate mood and affect; insight and judgment normal. Data Data Last Documented VS Vital Signs Date Time Temp Pulse Resp B/P (MAP) Pulse Ox O2 Delivery O2 Flow Rate FiO2 04/22/17 14:40 04/22/17 14:40 71 18 98 Room Air 04/22/17 11:38 97.8 Orders Orders Complete Blood Count With Diff (04/22/17 12:16) Basic Metabolic Panel (Bmp) (04/22/17 12:16) Drug Screen, Random Urine (04/22/17 12:16) Alcohol (Ethanol) (04/22/17 12:16) Creatine Kinase (Cpk) (04/22/17 12:16) Ketorolac Inj (Toradol Inj) (04/22/17 12:30) Shoulder, Complete (>2vws) (04/22/17 ) Sling Cradle Arm (04/22/17 ) Ondansetron Odt (Zofran Odt) (04/22/17 12:30) Sling Cradle Arm (04/22/17 ) Sodium Chlor 0.9% 1000 Ml Inj (Ns 1000 M (04/22/17 13:30) Labs Laboratory Tests Test 04/22/17 12:50 04/22/17 13:25 White Blood Count 8.8 TH/MM3 Red Blood Count 4.43 MIL/MM3 Hemoglobin 13.6 GM/DL Hematocrit 40.4 % Mean Corpuscular Volume 91.2 FL Mean Corpuscular Hemoglobin 30.6 PG Mean Corpuscular Hemoglobin Concent 33.5 % Red Cell Distribution Width 12.7 % Platelet Count 349 TH/MM3 Mean Platelet Volume 7.6 FL Neutrophils (%) (Auto) 76.0 % Lymphocytes (%) (Auto) 10.2 % Monocytes (%) (Auto) 11.3 % Eosinophils (%) (Auto) 2.2 % Basophils (%) (Auto) 0.3 % Neutrophils # (Auto) 6.7 TH/MM3 Lymphocytes # (Auto) 0.9 TH/MM3 Monocytes # (Auto) 1.0 TH/MM3 Eosinophils # (Auto) 0.2 TH/MM3 Basophils # (Auto) 0.0 TH/MM3 CBC Comment DIFF FINAL Differential Comment Blood Urea Nitrogen 25 MG/DL Creatinine 1.60 MG/DL Random Glucose 101 MG/DL Calcium Level 9.9 MG/DL Sodium Level 135 MEQ/L Potassium Level 4.1 MEQ/L Chloride Level 100 MEQ/L Carbon Dioxide Level 25.1 MEQ/L Anion Gap 10 MEQ/L Estimat Glomerular Filtration Rate 43 ML/MIN Total Creatine Kinase 284 U/L Ethyl Alcohol Level LESS THAN 3 MG/DL Urine Opiates Screen NEG Urine Barbiturates Screen NEG Urine Amphetamines Screen NEG Urine Benzodiazepines Screen NEG Urine Cocaine Screen NEG Urine Cannabinoids Screen NEG MDM Medical Decision Making Medical Screen Exam Complete: Yes Emergency Medical Condition: Yes Medical Record Reviewed: Yes Differential Diagnosis Shoulder arthritis, rotator cuff injury, tendinitis, vasovagal episode Narrative Course 1:21 PM CBC is within normal limit. Waiting for the rest of the blood test results. Awaiting for the x-ray to be read by the radiologist. Patient was medicated for pain and nausea. 2:16 PM blood test results are back. Patient has renal insufficiency which is a known finding. X-ray of the shoulder shows some degenerative changes but otherwise negative. I will discharge him home. Given the renal insufficiency I would like his lisinopril to be stopped and I'll start him on amlodipine. Procedures EKG Prior to Arrival: No Diagnosis Primary Impression: Vasovagal attack Additional Impressions: Shoulder pain, acute Qualified Codes: M25.511 - Pain in right shoulder Shoulder arthritis Renal insufficiency Referrals: Primary Care Physician Additional Instructions: please ask her primary care to refer you to an orthopedist for the shoulder management. Keep the sling on for comfort only for next couple days. Use warm compress on the area to keep the pain under control. Return to the ER if the condition worsens or any other new concerns. You blood test is suggestive of suboptimal renal function. He should stop taking your current blood pressure medication and start the new medication that has been given to you by the prescription. Med/Other Pt SpecificInfo: Existing Med Changed Scripts Amlodipine (Amlodipine) 10 Mg Tab 10 MG PO DAILY for Blood Pressure Management, #30 TAB 0 Refills Prov: Lenny Alexandre MD 04/22/17 Disposition: 01 DISCHARGE HOME Condition: Stable Lenny Alexandre MD Apr 22, 2017 12:10
[2017-04-22] MEDS ORDERED: ONDANSETRON ODT 4 MG TAB PO ONE (12:30)
[2017-04-22] MEDS ORDERED: KETOROLAC TROMETHAMINE 60 MG/2 ML (IM) VIAL IM ONE (12:30)
[2017-04-22 12:55] VITALS: BP 110/66; PULSE 80; RESP 14; O2SAT 97
[2017-04-22 13:09] LABS: AUTOMATED NEUTROPHIL # 6.7 TH/MM3 (1.8-7.7); BASOPHIL % 0.3 % (0.0-2.0); EOSINOPHIL # 0.2 TH/MM3 (0-0.4); EOSINOPHIL % 2.2 % (0.0-4.0); HEMATOCRIT 40.4 % (39.0-51.0); HEMO FLAGS DIFF FINAL; LYMPH % 10.2 % (9.0-44.0); LYMPHOCYTE # 0.9 TH/MM3 (1.0-4.8); MEAN CELL VOLUME 91.2 FL (80.0-100.0); MEAN CORPUSCULAR HEMOGLOBIN 30.6 PG (27.0-34.0); MEAN CORPUSCULAR HGB CONC 33.5 % (32.0-36.0); MONO % 11.3 % (0.0-8.0); PLATELET COUNT 349 TH/MM3 (150-450); RED BLOOD COUNT 4.43 MIL/MM3 (4.50-5.90); RED CELL DISTRIBUTION WIDTH 12.7 % (11.6-17.2); WHITE BLOOD COUNT 8.8 TH/MM3 (4.0-11.0)
[2017-04-22 13:16] LABS: CHLORIDE 100 MEQ/L (98-107); POTASSIUM 4.1 MEQ/L (3.5-5.1); SODIUM (NA) 135 MEQ/L (136-145)
[2017-04-22 13:20] LABS: ANION GAP 10 MEQ/L (5-15); BICARBONATE 25.1 MEQ/L (21.0-32.0)
[2017-04-22 13:21] LABS: BLOOD UREA NITROGEN 25 MG/DL (7-18)
[2017-04-22 13:24] LABS: GLOMERULAR FILTRATION RATE 43 ML/MIN (>89)
[2017-04-22 13:27] LABS: CREATINE KINASE 284 U/L (39-308)
--- NOTE | 2017-04-22 13:27 | RADRPT ---
EXAM DATE/TIME: 04/22/2017 12:24 [facility] COMPARISON: SHOULDER RIGHT COMPLETE (>2VWS), March 30, 2017, 14:14. INDICATIONS : Right shoulder pain. Patient states he reinjured it today pulling a pull cord to start lawn equipment . MEDICAL HISTORY : None. SURGICAL HISTORY : None. ENCOUNTER: Initial ACUITY: 3 months PAIN SCORE: 10/10 LOCATION: Right shoulder. FINDINGS: Mild degenerative changes are noted involving the right acromioclavicular and glenohumeral joints. T here is no acute fracture or dislocation of the right shoulder. CONCLUSION: 1. Mild degenerative changes involving the acromioclavicular and glenohumeral joints. 2. No acute fracture or dislocation. Roberto Berkowitz MD on April 22, 2017 at 12:47 Board Certified Radiologist. This report was verified electronically.
[2017-04-22] MEDS ORDERED: SODIUM CHLOR 0.9% 1000 ML INJ 1,000 ML IV ONE (13:30)
[2017-04-22 13:34] LABS: ALCOHOL LESS THAN 3 MG/DL (0-5)
[2017-04-22] MEDS ORDERED: AMLO10TA2 PO (14:19)
[2017-04-22 14:40] VITALS: BP 115/67; PULSE 71; RESP 18; O2SAT 98
== END 2017-04-22 14:40 | disposition home or self-care (01) ==
LOC: PHED 11:34
DX: R55 Syncope and collapse (principal); M25.511 Pain in right shoulder; M19.011 Primary osteoarthritis, right shoulder; N28.9 Disorder of kidney and ureter, unspecified; I10 Essential (primary) hypertension; X50.3XXA Overexertion from repetitive movements, initial encounter; Y93.H9 Activity, other involving exterior property and land maintenance, building and construction
CPT/HCPCS: 73030; 80048; 80307; 82550; 85025; 96372; 99284; J1885; J7030

== ENCOUNTER 2017-07-11 10:46 | Emergency (ER) | payer OTHER ==
[~2017-07-11] VITALS: Ht 177.8 cm; Wt 880.0 kg
[~2017-07-11 10:46] MED LIST changes: +AMLO10TA2 PO; -HYDR-3533 PO
[2017-07-11 10:47] VITALS: BP 127/72; PULSE 87; RESP 16; TEMP 99; O2SAT 99
[2017-07-11] MEDS ORDERED: HYDR-3583 PO (11:28)
--- NOTE | 2017-07-11 11:29 | PD ---
HPI Chief Complaint: Musculoskeletal Complaint Time Seen by Provider: 11:06 Travel History International Travel<30 days: No Contact w/Intl Traveler<30days: No Traveled to known affect area: No History of Present Illness HPI This 66-year-old male is complaining of pain in his right knee. He has a history of osteoarthritis in the knee. He has been here for troubles with this knee before. In January he had an MRI which showed severe osteoarthritis large complex tear of the lateral meniscus moderate-sized medial meniscus tear and large joint effusion and large Nguyen cyst. He has seen an orthopedist and apparently is supposed to go for therapy with consideration of knee replacement. He says that he worked yesterday mowing some lawns and after that the knee became much more painful. There was no twist or direct injury to the knee. He has not had any fever or chills. PFSH Past Medical History Arthritis: Yes (RT KNEE) Cancer: No Cardiovascular Problems: Yes (htn on meds) Diminished Hearing: No Endocrine: No Gastrointestinal Disorders: No Genitourinary: No Hypertension: Yes Implanted Vascular Access Dvce: No Musculoskeletal: Yes ("right knee problems,knee pops out,can't afford to f/u with ortho") Neurologic: No Psychiatric: No Reproductive: No Respiratory: No Immunizations Current: No Sleep Apnea: No Tetanus Vaccination: > 5 Years Influenza Vaccination: Yes PNEUMOCCOCAL Vaccine (Year): 2 Past Surgical History Appendectomy: Yes Ear Surgery: No Genitourinary Surgery: Yes (LEFT TESTICLE REMOVED 20 YEARS AGO) Neurologic Surgery: No Oral Surgery: Yes ("bilateral nasal surgery for polyps") Other Surgery: Yes ("left testicle removed") Social History Alcohol Use: No Tobacco Use: No Substance Use: No Allergies-Medications (Allergen,Severity, Reaction): Coded Allergies: codeine (Unverified Adverse Reaction, Severe, "itch", 07/11/17) tramadol (Unverified Adverse Reaction, Severe, Nausea/Vomiting, 07/11/17) Reported Meds & Prescriptions Reported Meds & Active Scripts Active Amlodipine (Amlodipine Besylate) 10 Mg Tab 10 Mg PO DAILY Reported Lisinopril 20 Mg Tab 20 Mg PO DAILY Review of Systems General / Constitutional: No: Fever, Chills Eyes: No: Diploplia, Blurred Vision HENT: No: Headaches, Vertigo Cardiovascular: No: Palpitations Respiratory: No: Cough, Shortness of Breath Gastrointestinal: No: Nausea, Vomiting Genitourinary: No: Urgency, Frequency Musculoskeletal: Positive: Arthralgias, Pain Skin: No Rash, No Itching Neurologic: No: Weakness, Dizziness Physical Exam Narrative GENERAL: Well-developed male SKIN: Focused skin assessment warm/dry. HEAD: Atraumatic. Normocephalic. EYES: Pupils equal and round. No scleral icterus. No injection or drainage. ENT: No nasal bleeding or discharge. Mucous membranes pink and moist. NECK: Trachea midline. No JVD. MUSCULOSKELETAL: Right knee is swollen. There is an effusion present. There is no gross valgus or varus instability he does have pain with flexion and limited range of motion at this time. There is no erythema NEUROLOGICAL: Awake and alert. No obvious cranial nerve deficits. Motor grossly within normal limits. Normal speech. PSYCHIATRIC: Appropriate mood and affect; insight and judgment normal. Data Data Last Documented VS Vital Signs Date Time Temp Pulse Resp B/P (MAP) Pulse Ox O2 Delivery O2 Flow Rate FiO2 07/11/17 10:47 99.0 87 16 127/72 (90) 99 Orders Orders Acetamin-Hydrocod 325-5 Mg ([place] 5-325 (07/11/17 11:30) Ibuprofen (Motrin) (07/11/17 11:30) MDM Medical Decision Making Medical Screen Exam Complete: Yes Emergency Medical Condition: Yes Medical Record Reviewed: Yes Differential Diagnosis Differential includes exacerbation of osteoarthritis, gout, and Narrative Course Patient has a knee brace that he uses intermittently. I have encouraged him to use it more frequently. We given Lortab 10 for pain. I have encouraged him to rest the knee and follow-up with his own medical doctor Diagnosis Primary Impression: Knee osteoarthritis Qualified Codes: M17.11 - Unilateral primary osteoarthritis, right knee Scripts Hydrocodone-Acetaminophen (Hydrocodone-Acetaminophen) 10-325 mg Tab 1 TAB PO Q4H Y for PAIN, #20 TAB 0 Refills Prov: Simon Araya MD 07/11/17 Disposition: 01 DISCHARGE HOME Condition: Stable Simon Araya MD Jul 11, 2017 11:29
[2017-07-11] MEDS ORDERED: IBUPROFEN 600 MG TAB PO ONE (11:30)
[2017-07-11] MEDS ORDERED: ACETAMINOPHEN/HYDROcodone 325 MG/5 MG TAB PO ONE (11:30)
== END 2017-07-11 12:30 | disposition home or self-care (01) ==
LOC: PHED 10:46
DX: M17.11 Unilateral primary osteoarthritis, right knee (principal); I10 Essential (primary) hypertension
CPT/HCPCS: 99283

== ENCOUNTER 2017-09-19 08:49 | Observation (INO) | payer MEDICARE, OTHER ==
[~2017-09-19] VITALS: Ht 180.3 cm; Wt 76.8 kg
[~2017-09-19 08:49] MED LIST changes: +GENTAMICIN SULFATE 80 MG/2 ML VIAL ONE; +HYDR-3583 PO
[2017-09-19] MEDS ORDERED: ceFAZolin 2 GM PREMIX 50 ML IV SCH (09:15)
[2017-09-19] MEDS ORDERED: METOPROLOL TARTRATE 25 MG TAB PO PRN (09:30)
[2017-09-19] MEDS ORDERED: POVIDONE IODINE 7.5% SCRUB 118 ML BOTTLE TOPICAL SCH (09:30)
[2017-09-19] MEDS ORDERED: POVIDONE IODINE 5% (ANTISEPSIS KIT) 4 APPLICATIONS EACH NARE PRN (09:30)
[2017-09-19] MEDS ORDERED: SODIUM CHLORID 0.9% 500 ML IV PRN (09:30)
[2017-09-19] MEDS ORDERED: CHLORHEXIDINE GLUCONATE 2 % 1 PACK (2 CLOTHS) TOPICAL PRN (09:30)
[2017-09-19] MEDS ORDERED: LACTATED RINGER'S 1000 ML IV PRN (09:30)
[2017-09-19] MEDS ORDERED: EXPAREL PERI-ARTICULAR INJECTION (TOTAL VOL. 60 ML) P-ARTICULR SCH ×2 (10:00)
[2017-09-19] MEDS ORDERED: TRANEXAMIC ACID 1 GM PRIOR TO PROCEDURE IV SCH ×2 (10:00)
[2017-09-19 11:01] VITALS: PULSE 65
--- NOTE | 2017-09-19 11:08 | EKG ---
Date Performed: 09/19/2017 Time Performed: 09:31:13 PTAGE: 66 years EKG: SINUS BRADYCARDIA WITH MARKED SINUS ARRHYTHMIA BORDERLINE ECG Since the prior tracing, ther e has been no significant change PREVIOUS TRACING : 10/27/2014 15.10 DOCTOR: Lalo Eldridge Interpretating Date/Time 09/19/2017 11:03:03
[2017-09-19] MEDS ORDERED: FAT EMULSION 20% INJ 0 ML ONE (11:10)
[2017-09-19] MEDS ORDERED: BUPIVACAINE HCL PF 0.5% 30 ML VIAL ONE (11:12)
[2017-09-19] MEDS ORDERED: LIDOCAINE HCL 1% PF 5 ML AMPULE ONE (11:12)
[2017-09-19] MEDS ORDERED: MIDAZOLAM HCL 2 MG/2 ML VIAL ONE ×2 (11:13→15:29)
[2017-09-19] MEDS ORDERED: NEOSTIGMINE 5 MG/5 ML SYRINGE IV PUSH ONE (12:00)
[2017-09-19] MEDS ORDERED: GLYCOPYRROLATE 1 MG/5 ML SYRINGE IV PUSH ONE (12:00)
[2017-09-19] MEDS ORDERED: LIDOCAINE HCL 1% PF 5 ML SYRINGE OTHER ONE (12:00)
[2017-09-19] MEDS ORDERED: DEXAMETHASONE SOD PHOS 4 MG/ML VIAL IV ONE (12:00)
[2017-09-19] MEDS ORDERED: ceFAZolin INJ 1,000 MG VIAL IV ONE (12:00)
[2017-09-19] MEDS ORDERED: ROCURONIUM INJ 50 MG/5 ML SYRINGE IV PUSH ONE (12:00)
[2017-09-19] MEDS ORDERED: LABETALOL HCL 100 MG/20 ML VIAL IV ONE (12:00)
[2017-09-19] MEDS ORDERED: ONDANSETRON HCL 4 MG/2 ML VIAL IV ONE (12:00)
[2017-09-19] MEDS ORDERED: PROPOFOL 200 MG/20 ML AMP IV ONE (12:00)
[2017-09-19] MEDS ORDERED: LACTATED RINGER'S 1000 ML INJ 1,000 ML IV ONE (12:00)
--- NOTE | 2017-09-19 12:18 | HHI.FF ---
Face to Face Verification Diagnosis: (1) severeOA Physical Therapy Gait training Knee: Total knee, Protocol: Right Right LE Weight Bearing: WB as tolerated Nursing RN: 3 days/week x 2 weeks Additional Instructions no dressing changes I have seen patient Rickey Diez on 09/19/17. My clinical findings support the need for the requested home health care services because: Ltd mobility - disease progression I certify that my clinical findings support that this patient is homebound because: Post-op weakness Unsteady gait/balance Amaury Washington Jr., MD Sep 19, 2017 12:18
--- NOTE | 2017-09-19 12:20 | HHI.DS ---
Discharge Summary Admission Date Sep 19, 2017 at 08:50 Discharge Date: Sep 21, 2017 Admitting Diagnosis right knee severe end stage osteoarthritis Diagnosis: (1) Osteoarthritis of knee, unilateral ICD Codes: M17.10 - Unilateral primary osteoarthritis, unspecified knee Brief History This is a 66 year old male patient Pt Condition on Discharge: Good Discharge Disposition: Disch w/ Home Health Serv Discharge Instructions Diet Instructions: As Tolerated, No Restrictions Activities You Can Perform: Weight Bearing as Yonny Activities to Avoid: Driving for 24 hrs, Lifting/Bending, Strenuous Activity Amaury Washington Jr., MD Sep 19, 2017 12:20
[2017-09-19] MEDS ORDERED: COLA100C5 PO (12:22)
[2017-09-19] MEDS ORDERED: PERC5TAB12 PO (12:22)
[2017-09-19] MEDS ORDERED: XARE10TA PO (12:22)
[2017-09-19] MEDS ORDERED: ZOFR4TAB PO (12:22)
[2017-09-19] MEDS ORDERED: LACTULOSE SYRUP 20 GM/30 ML CUP PO PRN (12:30)
[2017-09-19] MEDS ORDERED: PROMETHAZINE HCL 25 MG SUPP RECTAL PRN (12:30)
[2017-09-19] MEDS ORDERED: ACETAMINOPHEN 325 MG TAB PO PRN (12:30)
[2017-09-19] MEDS ORDERED: PROMETHAZINE HCL 25 MG TAB PO PRN (12:30)
[2017-09-19] MEDS: KETOROLAC TROMETHAMINE 30 MG/ML (IVP) VIAL IVP SCH ×2 (13:00→17:42)
[2017-09-19] MEDS ORDERED: SODIUM CHLORIDE 0.9% FLUSH 10 ML FLUSH IV FLUSH PRN (13:00)
[2017-09-19] MEDS ORDERED: oxyCODONE/ACETAMINOPHEN 5 MG/325 MG TAB PO PRN (13:00)
[2017-09-19] MEDS ORDERED: MIDAZOLAM HCL 2 MG/2 ML VIAL IV PUSH ONE (13:00)
[2017-09-19] MEDS ORDERED: TRANEXAMIC ACID 1 GM POST-OP IV SCH ×2 (13:00)
[2017-09-19] MEDS ORDERED: SENNOSIDES 8.6 MG TAB PO PRN (13:15)
[2017-09-19] MEDS ORDERED: MAGNESIUM HYDROXIDE SUSP 30 ML CUP PO PRN (13:15)
[2017-09-19] MEDS ORDERED: BISACODYL 10 MG SUPP RECTAL PRN (13:15)
[2017-09-19] MEDS ORDERED: Post-op Orders (for Pharmacy) XX ONE (14:00)
[2017-09-19] MEDS ORDERED: TRANEXAMIC ACID INJ 1,000 MG in SODIUM CHLORIDE 0.9% INJ 100 ML IV SCH (15:00)
[2017-09-19] MEDS ORDERED: DO NOT ADM ANY ANTICOAGULANT DRUGS PRN (15:17)
[2017-09-19] MEDS ORDERED: *morphine SULFATE 8 MG/ML PERIprocedure ONLY ONE ×3 (15:24→15:38)
[2017-09-19] MEDS ORDERED: ACETAMINOPHEN 1000 MG/100 ML 100 ML IV ONE ×2 (15:24→16:00)
[2017-09-19] MEDS ORDERED: MORPHINE SULFATE 4 MG/ML INJ ONE ×2 (15:29)
[2017-09-19] MEDS ORDERED: HYDROmorphone HCL PF 2 MG/ML VIAL ONE ×3 (15:41→16:30)
[2017-09-19] MEDS ORDERED: LIDOCAINE HCL 1% 20 ML VIAL ONE (15:56)
[2017-09-19 16:00] VITALS: BP 130/78; PULSE 66; RESP 18; TEMP 98; O2SAT 99
[2017-09-19] MEDS ORDERED: ROPIVACAINE 0.5% PF INJ 30 ML VIAL ONE (16:01)
--- NOTE | 2017-09-19 16:16 | RADRPT ---
EXAM DATE/TIME: 09/19/2017 15:40 [facility] COMPARISON: KNEE RIGHT LTD (1 OR 2 VWS), July 05, 2016, 9:26. INDICATIONS : Post right knee arthroplasty MEDICAL HISTORY : None. SURGICAL HISTORY : None. ENCOUNTER: Initial ACUITY: 1 day PAIN SCORE: 10/10 LOCATION: Right knee FINDINGS: AP and lateral views of the knee following arthroplasty reveals a prosthesis in anatomic alignment. F racture is not appreciated. Surgical drain is evident CONCLUSION: Status post total knee arthroplasty. Toney Subramanian MD FACR Board Certified Radiologist. This report was verified electronically.
--- NOTE | 2017-09-19 16:45 | PD.CONS ---
HPI Service [facility] Consult Requested By Reason for Consult Medical management Primary Care Physician Puma Cannon MD Diagnoses: History of Present Illness 66-year-old male with past medical history significant for osteoarthritis, hypertension, and nasal polyps who was admitted to same-day surgery for right knee replacement secondary to osteoarthritis. Patient is seen and examined in the PACU, still drowsy from anesthesia. He denies any pain or discomfort at the moment, apologizes for the yelling earlier. He denies any nausea, dizziness or lightheadedness at the moment. Discussed with nurse who states patient received large amounts of morphine along with Dilaudid earlier due to pain however still painful. Patient underwent right hip nerve block with improvement in pain control. Patient will be admitted for monitoring, [facility] consulted for medical management. 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, noncancerous Right knee replacement 09/19 Reported Medications Reported Meds & Active Scripts Active Zofran (Ondansetron HCl) 4 Mg Tab 4 Mg PO Q12HR PRN Colace (Docusate Sodium) 100 Mg Capsule 100 Mg PO BID Xarelto (Rivaroxaban) 10 Mg Tab 10 Mg PO DAILY Percocet (Oxycodone-Acetaminophen) 5-325 mg Tab 1 Tab PO Q4H PRN Hydrocodone-Acetaminophen 10-325 mg Tab 1 Tab PO Q4H PRN Amlodipine (Amlodipine Besylate) 10 Mg Tab 10 Mg PO DAILY Reported Lisinopril 20 Mg Tab 20 Mg PO DAILY Active Ordered Medications Current Medications Medications (Trade) Dose Ordered Sig/Benny Route Start Time Stop Time Status Last Admin (Betadine 7.5% Scrub) 1 applic UNSCH X1 TOPICAL 09/19/17 09:30 09/22/17 09:29 09/19/17 10:00 Cefazolin Sodium/ Dextrose 50 ml @ 100 mls/hr [employer] IV 09/19/17 09:15 09/22/17 09:14 Lactated Ringer's 1,000 ml @ 30 mls/hr Q24H PRN IV 09/19/17 09:30 09/22/17 09:29 09/19/17 10:50 Sodium Chloride 500 ml @ 30 mls/hr [id number] PRN IV 09/19/17 09:30 09/22/17 09:29 (Lopressor) 25 mg [employer] PRN PO 09/19/17 09:30 09/22/17 09:29 (Betadine 5% Antisepsis Kit) 1 applic [employer] PRN EACH NARE 09/19/17 09:30 09/22/17 09:29 09/19/17 10:00 (Chlorhexidine 2% Cloth) 3 pack [employer] PRN TOPICAL 09/19/17 09:30 09/22/17 09:29 09/19/17 09:50 (Norvasc) 10 mg DAILY PO 09/20/17 09:00 (Prinivil) 20 mg DAILY PO 09/20/17 09:00 (NS Flush) 2 ml UNSCH PRN IV FLUSH 09/19/17 13:00 (NS Flush) 2 ml BID IV FLUSH 09/19/17 21:00 Cefazolin Sodium 1000 mg/Sodium Chloride 100 ml @ 200 mls/hr Q6H IV 09/19/17 19:00 09/20/17 07:29 (Xarelto) 10 mg Q24H PO 09/20/17 01:00 (Morphine Inj) 5 mg Q3H PRN IV PUSH 09/19/17 13:00 (Percocet 5-325 Mg) 1 tab Q4H PRN PO 09/19/17 13:00 (Percocet 5-325 Mg) 2 tab Q4H PRN PO 09/19/17 13:00 (Tylenol) 650 mg Q6H PRN PO 09/19/17 12:30 (Toradol Inj) 15 mg Q6HR IVP 09/19/17 13:00 09/21/17 06:01 Tranexamic Acid 1000 mg/Sodium Chloride 110 ml @ 200 mls/hr UNSCH IV 09/19/17 15:00 09/19/17 18:00 (Phenergan) 25 mg Q4H PRN PO 09/19/17 12:30 (Phenergan Supp) 25 mg Q4H PRN RECTAL 09/19/17 12:30 (Ambien) 5 mg HS PRN PO 09/19/17 21:00 (Milli-Colace) 1 tab BID PO 09/19/17 21:00 (Milk Of Magnesia Liq) 30 ml Q12H PRN PO 09/19/17 13:15 (Senokot) 17.2 mg Q12H PRN PO 09/19/17 13:15 (Dulcolax Supp) 10 mg DAILY PRN RECTAL 09/19/17 13:15 (Lactulose Liq) 30 ml DAILY PRN PO 09/19/17 12:30 Miscellaneous Information ALL NURSING DEPARTME... UNSCH PRN .XX 09/19/17 15:17 09/20/17 15:16 Family History Mother: Hypertension Father: Cancer Social History Tobacco use: Denies Alcohol use: Occasional beer Illicit drug use: Denies Physical Exam Vital Signs Vital Signs Date Time Temp Pulse Resp B/P (MAP) Pulse Ox O2 Delivery O2 Flow Rate FiO2 09/19/17 11:02 100 Nasal Cannula 2 09/19/17 11:01 65 09/19/17 10:54 98.7 62 18 146/92 (110) 100 Physical Exam GENERAL: This is a well-nourished, well-developed patient, drowsy. SKIN: No rashes. Cool and dry. HEAD: Atraumatic. Normocephalic. EYES: Pupils equal round and reactive. Extraocular motions intact. No scleral icterus. No injection or drainage. ENT: Nose without bleeding, purulent drainage. Throat without erythema. Uvula midline. Airway patent. NECK: Trachea midline. No JVD, nontender. CARDIOVASCULAR: Regular rate and rhythm without murmurs, gallops, or rubs. Bilateral dorsal pedis pulses normal. RESPIRATORY: Clear to auscultation. Breath sounds equal bilaterally. No wheezes , rales, or rhonchi. GASTROINTESTINAL: Abdomen soft, non-tender, nondistended. No guarding. MUSCULOSKELETAL: Extremities without clubbing, cyanosis. Right knee wrapped in Andrea bandage. Left leg with SCD on, no foot edema noted. NEUROLOGICAL: Awake, drowsy but responds appropriately. Cranial nerves II through XII intact. Motor and sensory grossly within normal limits. Right leg wrapped, moves bilateral upper extremities and left lower extremities without difficulties. Normal speech. Imaging Last Impressions Knee X-Ray 09/19/17 0000 Signed Impressions: Service Date/Time: Tuesday, September 19, 2017 15:40 - CONCLUSION: Status post total knee arthroplasty. Toney Subramanian MD Assessment and Plan Assessment and Plan 66-year-old male with past medical history significant for osteoarthritis, hypertension, and nasal polyps who was admitted to same-day surgery for right knee replacement secondary to osteoarthritis. Total right knee arthroplasty - Done on 09/19 by - DVT prophylaxis with Xarelto 10 mg daily - PT/OT consulted - s/p block -Pain control with oral Percocet, IV morphine for breakthrough pain -Bowel regimen on board Hypertension -Continue patient's home dose lisinopril, and Norvasc 10 mg -BP trending down, continue monitoring. -Clonidine 0.1 mg if needed DVT prophylaxis-Xarelto Thank you for this consultation, will continue to assist with medical management. Hugo Gibbs Sep 19, 2017 16:45
[2017-09-19] MEDS ORDERED: cloNIDine HCL 0.1 MG TAB PO PRN (17:45)
--- NOTE | 2017-09-19 17:50 | PD.OP ---
cc: Amaury Washington Jr., MD Operative Report Date of Surgery: Sep 19, 2017 Preoperative Diagnosis: Right end-staged total knee osteoarthritis Postoperative Diagnosis: Same Procedure: Right total knee arthroplasty Anesthesia: Gen. Surgeon: Amaury Washington Mold Closer(s): ISI Kelley The surgical procedure was assisted by my Advanced Registered Nurse Practitioner. My STRATEGIC MARKETING SPECIALIST presence was necessary throughout this case for the manipulation and positioning of the surgical extremity. My STRATEGIC MARKETING SPECIALIST was assisting me throughout the duration of this procedure. The skill set of an Advance Registered Nurse Practitioner was medically necessary to complete this procedure. During the surgical case, the surgical assistant was working at the back table and the Advance Registered Nurse Practitioner was directly assisting me. Resident Surgeon: Munir Operation and Findings: ESTIMATED BLOOD LOSS: 100 cc TOURNIQUET TIME: 72 minutes at 250 mmHg pressure. JUSTIFICATION FOR PROCEDURE: The patient has end-stage osteoarthritis to the knee. There is an attached H&P illustrating a conservative measures pathway in the chart that describes the nonoperative measures that were undertaken prior to consideration of surgical management. The patient understood the risks and benefits of surgical management. See my office notes for further details PROCEDURE: The patient was brought back to the operative theatre. Adequate anesthesia was obtained. The patient received intravenous ancef. The RIGHT lower extremity was prepped and draped in the usual sterile fashion.The leg was exsanguinated, the tourniquet was raised. A standard anterior incision was performed followed by medial parapatellar arthrotomy was performed. End-stage arthritis was identified. Osteotomy of the patella was performed. We drilled holes for the patella. We trialed the patella component. We placed an intramedullary guide into the distal femur. We ultimately resected the distal femur in 2 degrees of valgus to compensate for denuded lateral femoral condyle. The remnants of the ACL and PCL were resected. Osteotomy of the proximal tibia was performed. This was done with 3 degrees of posterior slope using an extramedullary guide. The distal end of the guide was placed in the mid aspect of the ankle. The femur was sized, and four chamfer cuts were completed. We then cut the central box in the distal femur to replace the PCL. We resected the remnants of the menisci and removed osteophytes off of the femur and tibia. We then trialed the knee. We punched the tibia for the keel, and then used standard technique to cement in components. Excess cement was removed. We trialed the knee again and the final polyethylene thickness was chosen to provide extension to 0 degrees, and flexion of 140 degrees to gravity. The ligaments were appropriately balanced. Lateral release was not necessary to obtain excellent patellofemoral tracking. The final polyethylene was put into position after thorough irrigation. The tourniquet was released and adequate hemostasis was obtained. The posterior capsule and surrounding soft tissue were injected with experral. We then closed deep fascia with a #2 Stratafix followed by skin with 2-0 Vicryl followed by nylon at the skin. IMPLANTS: Stryke POSTP-OP PLAN OF ACTIVITY Antibiotics: Ancef DVT prophylaxis will be performed with SCDs, NEIL barclay, early mobilization, and xarelto while hospitalized (xeralto at discharge if not mobilizing well) Weight bearing status: WBAT Dressing: do not change Dispo: expected discharge 2 days, [facility] Amaury Washington Jr., MD Sep 19, 2017 17:50
[2017-09-19] MEDS: oxyCODONE/ACETAMINOPHEN 5 MG/325 MG TAB PO PRN ×2 (18:05→22:19)
[2017-09-19] MEDS: SODIUM CHLORIDE 0.9% FLUSH 10 ML FLUSH IV FLUSH SCH (19:48)
[2017-09-19] MEDS: DOCUSATE SODIUM 50 MG/SENNA 8.6 MG TAB PO SCH (19:49)
[2017-09-19 20:15] VITALS: BP 142/82; PULSE 69; RESP 17; TEMP 97.5; O2SAT 100
[2017-09-20 00:10] VITALS: BP 108/73; PULSE 79; RESP 18; TEMP 98.1; O2SAT 98
[2017-09-20] MEDS: KETOROLAC TROMETHAMINE 30 MG/ML (IVP) VIAL IVP SCH ×5 (01:27→23:46)
[2017-09-20] MEDS: RIVAROXABAN 10 MG TAB PO SCH ×2 (01:27→23:46)
[2017-09-20] MEDS: oxyCODONE/ACETAMINOPHEN 5 MG/325 MG TAB PO PRN ×5 (02:48→20:57)
[2017-09-20 05:10] VITALS: BP 140/77; PULSE 60; RESP 18; TEMP 97.6; O2SAT 99
[2017-09-20 08:00] VITALS: BP 117/69; PULSE 64; RESP 17; TEMP 98.3; O2SAT 99
[2017-09-20 08:24] LABS: HEMATOCRIT 30.4 % (39.0-51.0); HEMOGLOBIN 10.6 GM/DL (13.0-17.0)
[2017-09-20] MEDS: DOCUSATE SODIUM 50 MG/SENNA 8.6 MG TAB PO SCH ×2 (08:49→20:57)
[2017-09-20] MEDS: LISINOPRIL 20 MG TAB PO SCH (08:49)
[2017-09-20] MEDS: SODIUM CHLORIDE 0.9% FLUSH 10 ML FLUSH IV FLUSH SCH ×2 (08:49→21:00)
[2017-09-20 12:00] VITALS: BP 116/70; PULSE 73; RESP 17; TEMP 98.7; O2SAT 98
[2017-09-20] MEDS: MORPHINE SULFATE 8 MG/ML INJ IV PUSH PRN (14:12)
[2017-09-20 16:00] VITALS: BP 135/82; PULSE 77; RESP 17; TEMP 99.1; O2SAT 97
--- NOTE | 2017-09-20 19:05 | PD.ORT.PN ---
Subjective Subjective Remarks pain issues at night. did well with PT Objective Vitals Vital Signs Date Time Temp Pulse Resp B/P (MAP) Pulse Ox O2 Delivery O2 Flow Rate FiO2 09/20/17 17:43 16 09/20/17 16:00 99.1 77 17 135/82 (99) 97 09/20/17 14:17 16 09/20/17 12:04 16 09/20/17 12:00 98.7 73 17 116/70 (85) 98 09/20/17 08:00 98.3 64 17 117/69 (85) 99 09/20/17 05:10 97.6 60 18 140/77 (98) 99 09/20/17 00:10 98.1 79 18 108/73 (85) 98 09/19/17 20:15 97.5 69 17 142/82 (102) 100 I/O 09/19/17 09/19/17 09/19/17 09/20/17 09/20/17 09/20/17 07:00 15:00 23:00 07:00 15:00 23:00 Intake Total 1000 ml 460 ml 360 ml 480 ml Output Total 450 ml 225 ml 475 ml Balance 550 ml 235 ml -115 ml 480 ml Intake Oral 360 ml 360 ml 480 ml IV Total 1000 ml 100 ml Output Urine Total 350 ml 225 ml 475 ml Estimated Blood Loss 100 ml Bladder Scan Volume Amount 138 ml 194 ml # Voids 0 3 # Bowel Movements 0 0 0 Result Diagram: 09/20/17 0800 Objective Remarks AAOx3. NAD RLE: dressing CDI. neg homans, NVI. SILT distally. Assessment & Plan Problem List: (1) Osteoarthritis of knee, unilateral ICD Codes: M17.10 - Unilateral primary osteoarthritis, unspecified knee Assessment and Plan POSTP-OP Day 1 Doing well. Antibiotics: Ancef DVT prophylaxis will be performed with SCDs, NEIL hose, early mobilization, and xarelto Weight bearing status: WBAT Dressing: do not change Dispo: expected discharge 2 days, [facility] Amaury Washington Jr., MD Sep 20, 2017 19:05
[2017-09-20] MEDS ORDERED: oxyCODONE/ACETAMINOPHEN 5 MG/325 MG TAB PO PRN (19:15)
[2017-09-20 20:20] VITALS: BP 142/76; PULSE 86; RESP 18; TEMP 97.9; O2SAT 98
[2017-09-21] MEDS: MORPHINE SULFATE 8 MG/ML INJ IV PUSH PRN ×2 (00:43→08:46)
[2017-09-21 00:45] VITALS: BP 142/85; PULSE 74; RESP 18; TEMP 98.9; O2SAT 96
[2017-09-21] MEDS: oxyCODONE/ACETAMINOPHEN 5 MG/325 MG TAB PO PRN ×5 (04:42→22:27)
[2017-09-21] MEDS: KETOROLAC TROMETHAMINE 30 MG/ML (IVP) VIAL IVP SCH (06:20)
[2017-09-21 08:00] VITALS: BP 117/69; PULSE 77; RESP 17; TEMP 98; O2SAT 94
[2017-09-21] MEDS: DOCUSATE SODIUM 50 MG/SENNA 8.6 MG TAB PO SCH ×2 (08:46→19:39)
[2017-09-21] MEDS: LISINOPRIL 20 MG TAB PO SCH (08:47)
[2017-09-21] MEDS: SODIUM CHLORIDE 0.9% FLUSH 10 ML FLUSH IV FLUSH SCH ×2 (08:47→19:39)
[2017-09-21 12:00] VITALS: BP 149/83; PULSE 77; RESP 17; TEMP 98.5; O2SAT 98
[2017-09-21 16:00] VITALS: BP 128/82; PULSE 87; RESP 17; TEMP 99.9; O2SAT 97
[2017-09-21 19:00] VITALS: BP 142/83; PULSE 86; RESP 18; TEMP 98.4; O2SAT 97
--- NOTE | 2017-09-21 20:53 | PD.ORT.PN ---
Subjective Subjective Remarks pain better controlled. doing well with PT Objective Vitals Vital Signs Date Time Temp Pulse Resp B/P (MAP) Pulse Ox O2 Delivery O2 Flow Rate FiO2 09/21/17 16:04 16 09/21/17 16:00 99.9 87 17 128/82 (97) 97 09/21/17 12:00 98.5 77 17 149/83 (105) 98 09/21/17 08:51 16 09/21/17 08:00 98.0 77 17 117/69 (85) 94 09/21/17 07:20 16 09/21/17 00:45 98.9 74 18 142/85 (104) 96 I/O 09/20/17 09/20/17 09/20/17 09/21/17 09/21/17 09/21/17 07:00 15:00 23:00 07:00 15:00 23:00 Intake Total 360 ml 480 ml 360 ml 480 ml Output Total 475 ml 550 ml 600 ml Balance -115 ml 480 ml -190 ml -120 ml Intake Oral 360 ml 480 ml 360 ml 480 ml Output Urine Total 475 ml 550 ml 600 ml Bladder Scan Volume Amount 138 ml 194 ml # Voids 3 # Bowel Movements 0 0 0 1 Result Diagram: 09/20/17 0800 Objective Remarks AAOx3. NAD RLE: dressing CDI. neg homans, NVI. SILT distally. Assessment & Plan Problem List: (1) Osteoarthritis of knee, unilateral ICD Codes: M17.10 - Unilateral primary osteoarthritis, unspecified knee Assessment and Plan POSTP-OP Day 1 Doing well. OOB with PT Antibiotics: Ancef DVT prophylaxis will be performed with SCDs, NEIL barclay, early mobilization, and xarelto Weight bearing status: WBAT Dressing: do not change Dispo: expected discharge , Amaury Washington Jr., MD Sep 21, 2017 20:53
[2017-09-21] MEDS: ZOLPIDEM TARTRATE 5 MG TAB PO PRN (22:27)
[2017-09-21 23:30] VITALS: BP 143/80; PULSE 80; RESP 18; TEMP 98.7; O2SAT 98
[2017-09-22] MEDS: RIVAROXABAN 10 MG TAB PO SCH (02:14)
[2017-09-22] MEDS: oxyCODONE/ACETAMINOPHEN 5 MG/325 MG TAB PO PRN ×6 (02:14→21:30)
[2017-09-22] MEDS: MORPHINE SULFATE 8 MG/ML INJ IV PUSH PRN (03:25)
[2017-09-22 08:00] VITALS: BP 131/76; PULSE 82; RESP 17; TEMP 98; O2SAT 96
[2017-09-22] MEDS: LISINOPRIL 20 MG TAB PO SCH (08:55)
[2017-09-22] MEDS: SODIUM CHLORIDE 0.9% FLUSH 10 ML FLUSH IV FLUSH SCH ×2 (08:55→21:31)
[2017-09-22] MEDS: DOCUSATE SODIUM 50 MG/SENNA 8.6 MG TAB PO SCH ×2 (08:55→21:29)
[2017-09-22 12:01] VITALS: BP 137/73; PULSE 86; RESP 17; TEMP 98.2; O2SAT 99
[2017-09-22 14:55] VITALS: BP 123/64; PULSE 69; RESP 18; TEMP 99.3; O2SAT 97
--- NOTE | 2017-09-22 16:03 | PD.ORT.PN ---
Subjective Subjective Remarks pain better controlled. doing well with PT Objective Vitals Vital Signs Date Time Temp Pulse Resp B/P (MAP) Pulse Ox O2 Delivery O2 Flow Rate FiO2 09/22/17 12:01 98.2 86 17 137/73 (94) 99 09/22/17 08:00 98.0 82 17 131/76 (94) 96 09/21/17 23:30 98.7 80 18 143/80 (101) 98 09/21/17 19:00 98.4 86 18 142/83 (102) 97 09/21/17 16:04 16 I/O 09/21/17 09/21/17 09/21/17 09/22/17 09/22/17 09/22/17 07:00 15:00 23:00 07:00 15:00 23:00 Intake Total 480 ml 480 ml 360 ml Output Total 600 ml 500 ml 400 ml Balance -120 ml -20 ml -40 ml Intake Oral 480 ml 480 ml 360 ml Output Urine Total 600 ml 500 ml 400 ml # Bowel Movements 1 0 0 Result Diagram: 09/20/17 0800 Objective Remarks AAOx3. NAD RLE: dressing CDI. neg homans, NVI. SILT distally. Assessment & Plan Problem List: (1) Osteoarthritis of knee, unilateral ICD Codes: M17.10 - Unilateral primary osteoarthritis, unspecified knee Assessment and Plan POSTP-OP Day 2 Doing well. OOB with PT Antibiotics: Ancef DVT prophylaxis will be performed with SCDs, NEIL hoffmanne, early mobilization, and xarelto Weight bearing status: WBAT Dressing: do not change Dispo: no longer going to SNF. home with [facility] in the am rx in chart Amaury Washington Jr., MD Sep 22, 2017 16:03
--- NOTE | 2017-09-22 19:33 | HHI.PR ---
Subjective Remarks Follow up for hypertension s/p right TKA. Patient is currently doing well. No acute concerns. He is waiting for insurance approval to go to SNF. Objective Vitals Vital Signs Date Time Temp Pulse Resp B/P (MAP) Pulse Ox O2 Delivery O2 Flow Rate FiO2 09/22/17 14:55 99.3 69 18 123/64 (83) 97 09/22/17 12:01 98.2 86 17 137/73 (94) 99 09/22/17 08:00 98.0 82 17 131/76 (94) 96 09/21/17 23:30 98.7 80 18 143/80 (101) 98 I/O 09/21/17 09/21/17 09/21/17 09/22/17 09/22/17 09/22/17 07:00 15:00 23:00 07:00 15:00 23:00 Intake Total 480 ml 480 ml 360 ml Output Total 600 ml 500 ml 400 ml 900 ml Balance -120 ml -20 ml -40 ml -900 ml Intake Oral 480 ml 480 ml 360 ml Output Urine Total 600 ml 500 ml 400 ml 900 ml # Bowel Movements 1 0 0 2 Result Diagram: 09/20/17 0800 Imaging Last Impressions Knee X-Ray 09/19/17 0000 Signed Impressions: Service Date/Time: Tuesday, September 19, 2017 15:40 - CONCLUSION: Status post total knee arthroplasty. Toney Subramanian MD Objective Remarks GENERAL: AOX3, NAD. SKIN: Warm and dry. HEAD: Normocephalic. EYES: No scleral icterus. No injection or drainage. NECK: Supple, trachea midline. No JVD or lymphadenopathy. CARDIOVASCULAR: Regular rate and rhythm without murmurs, gallops, or rubs. RESPIRATORY: Breath sounds equal bilaterally. No accessory muscle use. GASTROINTESTINAL: Abdomen soft, non-tender, nondistended. MUSCULOSKELETAL: No cyanosis, or edema. s/p Right TKA BACK: Nontender without obvious deformity. No CVA tenderness. Procedures Right total knee arthroplasty 09/19/2017. A/P Assessment and Plan 66-year-old male with past medical history significant for osteoarthritis, hypertension, and nasal polyps who was admitted to same-day surgery for right knee replacement secondary to osteoarthritis. Total right knee arthroplasty - Done on 09/19 by - DVT prophylaxis with Xarelto 10 mg daily - PT/OT consulted - Pain control with oral Percocet, IV morphine for breakthrough pain - Bowel regimen on board Hypertension - Continue patient's home dose lisinopril, and Norvasc 10 mg - BP is well controlled. - Clonidine 0.1 mg if needed DVT prophylaxis-Alexander Patel DO Sep 22, 2017 19:33
[2017-09-22 19:59] VITALS: BP 119/63; PULSE 80; RESP 18; TEMP 98.6; O2SAT 98
[2017-09-22] MEDS: ZOLPIDEM TARTRATE 5 MG TAB PO PRN (22:11)
[2017-09-22 23:00] VITALS: BP 116/77; PULSE 94; RESP 18; TEMP 96.7; O2SAT 99
[2017-09-23] MEDS: RIVAROXABAN 10 MG TAB PO SCH (01:07)
[2017-09-23] MEDS: oxyCODONE/ACETAMINOPHEN 5 MG/325 MG TAB PO PRN ×2 (01:59→08:23)
[2017-09-23] MEDS: MORPHINE SULFATE 8 MG/ML INJ IV PUSH PRN (03:30)
[2017-09-23 03:45] VITALS: BP 119/63; PULSE 85; RESP 18; TEMP 96.8; O2SAT 97
[2017-09-23 08:20] VITALS: BP 135/80; PULSE 87; RESP 17; TEMP 98.5; O2SAT 97
[2017-09-23] MEDS: LISINOPRIL 20 MG TAB PO SCH (08:22)
[2017-09-23] MEDS: DOCUSATE SODIUM 50 MG/SENNA 8.6 MG TAB PO SCH (08:22)
[2017-09-23] MEDS: SODIUM CHLORIDE 0.9% FLUSH 10 ML FLUSH IV FLUSH SCH (08:23)
--- NOTE | 2017-09-23 09:45 | HHI.DS ---
Discharge Summary Admission Date Sep 19, 2017 at 17:43 Discharge Date: Sep 23, 2017 Admitting Diagnosis (1) Osteoarthritis of knee, unilateral ICD Code: M17.10 - Unilateral primary osteoarthritis, unspecified knee Procedures Right total knee arthroplasty 09/19/2017. Brief History - From Admission 66-year-old male with past medical history significant for osteoarthritis, hypertension, and nasal polyps who was admitted to same-day surgery for right knee replacement secondary to osteoarthritis. Patient is seen and examined in the PACU, still drowsy from anesthesia. He denies any pain or discomfort at the moment, apologizes for the yelling earlier. He denies any nausea, dizziness or lightheadedness at the moment. Discussed with nurse who states patient received large amounts of morphine along with Dilaudid earlier due to pain however still painful. Patient underwent right hip nerve block with improvement in pain control. Patient will be admitted for monitoring, [facility] consulted for medical management. CBC/BMP: 09/20/17 0800 PE at Discharge GENERAL: AOX3, NAD. SKIN: Warm and dry. HEAD: Normocephalic. EYES: No scleral icterus. No injection or drainage. NECK: Supple, trachea midline. No JVD or lymphadenopathy. CARDIOVASCULAR: Regular rate and rhythm without murmurs, gallops, or rubs. RESPIRATORY: Breath sounds equal bilaterally. No accessory muscle use. GASTROINTESTINAL: Abdomen soft, non-tender, nondistended. MUSCULOSKELETAL: No cyanosis, or edema. s/p Right TKA BACK: Nontender without obvious deformity. No CVA tenderness. Hospital Course 66M who underwent a right knee replacement is awaiting his discharge today. He had some hypertension post op which was controlled. He has been working with PT and is ambulating with a walker. His insurance did not approve the SNF option, but he is becoming optimistic about his recovery at home. He requests pain medications, which I see have been written by his Ortho Attending. He is clear for discharge from my standpoint, resume home meds. Pt Condition on Discharge: Good Discharge Disposition: Disch w/ Home Health Serv Discharge Time: <= 30 minutes Discharge Instructions DIET: Follow Instructions for: As Tolerated, No Restrictions Activities you can perform: Weight Bearing as Yonny Activities to Avoid: Driving for 24 hrs, Lifting/Bending, Strenuous Activity Shahram Burgess MD Sep 23, 2017 09:45
== END 2017-09-23 10:13 | disposition home health service (06) ==
LOC: HSDC 08:49 → UNDOADMOB 08:50 → HSDI 08:50 → INTOOBSV 08:50 → EDSTATUS 12:00 → HSDI 17:43 → N06A 17:43
PROVIDERS: ADMIT Orthopaedic Surgery; ATTEND Orthopaedic Surgery
DX: M17.11 Unilateral primary osteoarthritis, right knee (principal); I10 Essential (primary) hypertension
CPT/HCPCS: 01400; 27447; 73560; 85014; 85018; 86850; 86900; 86901; 93005; 94150; 96365; 96366; 96375; 96376; 97110; 97116; 97150; 97163; 97166; C1776; G0378; G8987; G8988; J0131; J0690; J1100; J1170; J1580; J1885; J2250; J2270; J2405; J2710; J2795; J3010; J7120; L1830